=== PATIENT | female | born 2000 | race Caucasian/White ===

== ENCOUNTER 2025-06-08 10:56 | Emergency (ER) | payer BC, SELFPAY ==
--- OUTSIDE RECORDS SUMMARY | 2024-04-19 04:00 | XMS_ITS ---
Author Organization [facility] Address [address] [place], [place] [id number] Care Team Providers Care Benzene Washer Name Role Phone Wilfredo De Oliveira Primary Care Provider Rob Hanson Unavailable [phone] REASON FOR VISIT thyroid Medications Medication SIG (Take, Route, Frequency, Duration) Notes Start Date End Date Status Syringe Luer Lock 25G X 5/8 3 ML once a week; D uration: 30 days ActiveNeedle (Disp) 23G X 3/4 one a week; Duration: 30 daysActiveTirosint-MARTA 150 MCG/ML1 mL in the morning before breakfast Orally Once a dayActiveLexapro 20 MG1 tablet Orally Once a dayActiveMetoclopramide HCl 10 MG1 tablet before meals Orally three times a dayActiveTirosint-MARTA 150 MCG/ML1 mL in the morning before breakfast Orally Once a day; Duration: 30 days03/29/2024ctiveLevothyroxine Sodium 100 MCG/5ML75 mcg IM weekly; Duration: 30 daysActive Encounters Encounter Location Date Provider Diagnosis [facility] [address] [place], [place] [id number] 04/19/2024 Rob Guy Graves Disease E05.00 and Hypothyroid E03.9 Assessments Encounter Date Diagnosis (ICD Code) Assessment Notes Treatment Notes Treatment Clinical Notes Section Notes 04/19/2024 Graves Disease (ICD-10 - E05.00) 04/19/2024Hypothyroid (ICD-10 - E03.9) Plan Of Treatment Medication Medication Name Sig Start Date Stop Date Notes Syringe Luer Lock 25G X 5/8 3 ML once a week; D uration: 30 days Needle (Disp) 23G X 3/4 one a week; Duration: 30 daysLevothyroxine Sodium 100 MCG/5ML75 mcg IM weekly; Duration: 30 days Progress Notes * Stephanie DAVISeDOB:2000 ( 24 yo F)Acc No.[id number]:04/19/2024 Progress Note Patient: Yaz VELAZQUEZ :?Malena Rob, MDDOB:2000???Age:23 Y ???Sex:FemaleDate:04/19/2024hone:[phone]:[address], [place]Vho:Wilfredo De Oliveira Subjective: * Chief Complaints: * 1 . Thyroid. * Medical History: * Medications: T aking Tirosint-MARTA 150 MCG/ML Solution 1 mL in the morning before breakfast Orally Once a day , Taking Metoclopramide HCl 10 MG Tablet 1 tablet before meals Orally three times a day , Taking Lexapro 20 MG Tablet 1 tablet Orally Once a day , Taking Syringe Luer Lock 25G X 5/8 3 ML Miscellaneous once a week , Taking Needle (Disp) 23G X 3/4 Miscellaneous one a week , Taking Tirosint-MARTA 150 MCG/ML Solution 1 mL in the morning before breakfast Orally Once a day , Taking Levothyroxine Sodium 100 MCG/5ML Solution 75 mcg IM once a week Objective: * Vitals: * P ast Orders: L ab:THYROID STIMULATING HORMONE (Order Date - 04/04/2024) (Collection Date & Time - 04/04/2024 09:32 AM) Value Reference Range TSH 19.26 H 0.45-5.33 - mcIU/mL ???Lab:THYROXINE FREE (Order Date - 04/04/2024) (Collection Date & Time - 04/04/2024 09:32 AM)?ValueReference Range?Free T40.800.61-1.24 - ng/dL Assessment: * Assessment: 1.?Graves Disease - E05.00???2.?Hypothyroid - E03.9 (Primary)?? Plan: * Treatment: Start Levothyroxine Sodium Solution, 100 MCG/5ML, 75 mcg, IM, weekly, 30 days, 20 Milliliter, Refills 1;?Start Syringe Luer Lock Miscellaneous, 25G X 5/8 3 ML, once a week, 30 days, 4, Refills 3;?Start Needle (Disp) Miscellaneous, 23G X 3/4 , one a week, 30 days, 4, Refills 3.?? * Images: * Electronic signature of Rob Guy MD on 06/08/2025 at 11:48 AM EST Sign off status: Pending * Provider: Elizabeth Rivas MD Date: 06/19/2023 Generated for Printing/Faxing/eTransmitting on:?06/08/2025 11:48 AM EST
--- OUTSIDE RECORDS SUMMARY | 2025-05-29 13:20 | XMS_ITS | Encounter Summary ---
Author Organization [facility] Address [address] 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 [facility] [place] [place] [address] [place] [address] Lisa Templeton, CTC OPERATOR [address] [facility]etric[facility] [address] Pelvic pain (Primary Dx); Dysmenorrhea Social History Tobacco UseTypesPacks/DayYears UsedDateSmoking Tobacco: NeverSmokeless Tobacco: Never Tobacco Cessation:Counseling Given: Not Answered Alcohol UseStandard Drinks/WeekCommentsNo0 (1 standard drink = 0.6 oz pure alcohol)AUDIT-CAnswerDate RecordedQ1: How often do you have a drink containing alcohol?Never02/07/2023Q2: How many drinks containing alcohol do you have on a typical day when you are drinking?Patient does not drink02/07/2023Q3: How often do you have six or more drinks on one occasion?Never02/07/2023Hunger Vital Sign AnswerDate RecordedWithin the past 12 months, you worried that your food would run out before you got the money to buymore.Never true02/17/2023Within the past 12 months, the food you bought just didn't last and you didn't have money to get more.Never true02/17/2023RAPARE - TransportationAnswerDate RecordedIn the past 12 months, has lack of transportation kept you from medical appointments or from getting medications?No02/17/2023In the past 12 months, has lack of transportation kept you from meetings, work, or from getting things needed for daily living?No02/17/2023Intimate Partner ViolenceAnswerDate RecordedWithin the last year, have you felt unsafe in your home or been afraid of someone close to you?No02/17/2023Within the last year, have you been humiliated or emotionally abused in other ways by someone closeto you?No02/17/2023Within the last year, have you been kicked, hit, slapped, or otherwise physically hurt by someone cl ose to you?No02/17/2023Within the past 12 months, have you been raped or forced to have any kind of sexual activity by someone?No02/17/2023Job TrainingAnswer Date RecordedDo you have a hard time finding work or another steady source of income?No02/17/2023o you need help finding a local career center and/or job training?No02/17/2023hild or Elder CareAnswerDate RecordedIn the last 4 weeks, did getting rn maternal child, elder care, or care for another person make it difficult to work, study, or get to medical visits? 2No02/17/2023Virtual CareAnswerDate RecordedHow would you describe your comfort level with using technology (smart phones, mobile apps, patientportals) to access your health care?Very comfortable 02/17/2023o you have internet access in your home that would allow you to participate in a realtime video visit with your provider?Yes02/17/2023o you have access to a device that would allow you to participate in virtual care with your provider, such as a laptop, computer, smart phone or tablet?Yes02/17/2023 CommentsNoSex and Gender InformationValueDate RecordedSex Assigned at BirthNot on fileLegal AlhKdkjvz77/17/2013 11:03 PM ESTGender IdentityNot on file Sexual OrientationNot on filedocumented as of this encounter Last Filed Vital Signs Vital SignReadingTime TakenCommentsBlood Luyshviz189/6505/29/2025 1:03 PM EST Ugqvr739205/29/2025 1:03 PM ESTTemperature--Respiratory Rate--Oxygen Saturation-- Inhaled Oxygen Concentration--Xbnnhk81.3 kg (106 lb 6.4 oz)05/29/2025 1:03 PM WUEAjaxbc361 cm (5' 3.78 )05/29/2025 1:03 PM ESTBody Mass Index18.39107/30/2024 1:03 PM ESTdocumented in this encounter Progress Notes * Lisa Templeton, ANGY - 05/29/2025 1:08 PM EST Reason for visit: Yaz Dumont presents today to discuss irregular menstrual bleeding and pelvic pain. She is a new patient to our practice. She is 24 years old. She c/o pelvic pain pretty much every day. Takes Tylenol or Advil because of this pain basically every day. States there is always a pressure and tingling feeling throughout her pelvis. Also c/o back pain and an aching through pretty much her whole body. Back and pelvic pain are worse during period. Also has pain with intercourse and difficulty passing bowel movements as it feels like it's blocked during her period. Has to change super tampon about every 2 hours during her heavy days. Bleeds a total of 7 days. Periods have been very irregular since stopping her Depo Provera in November. Is not sure what her menstrual cycles are like as she had no periods for years in teens and then diagnosed with Graves disease. After that she has been on control pills which caused depression,Depo Provera which caused irregular bleeding, and Nexplanon which also caused constant bleeding. Previously had a Kyleena IUD which worked really well for her and controlled her bleeding and pain.However it was removed when she was diagnosed with PID 11 months ago and sent to ED. Chlamydia and gonorrhea testing was negative at that time. Had a gynecological exam at [facility] about 12 days ago. At that time they collected STI screening and vaginosis screening plus ordered an ultrasound. She was subsequently treated for BV after positive swab. She was unable to schedule the pelvic ultrasound here at [place] so hasn't scheduled yet. She mentions that her twin sister has the same problems with pelvic pain and bleeding. Her PCP suspects endometriosis. Reproductive History: Pregnancies: G0 Denies history of frequent vaginal infections or STI's. Born and identifies as female. Primary sexual partner is male. Denies concerns re: her sexual health. Pap history:..Last Pap Date: 05/17/2023 Medical history: Problem List[1] Immunizations completed: TDAP: due HPV: not done, declined today Flu: due Family history: see chart Psychosocial and Personal Health History: Marital status: Single Occupation: [employer] Exercise habits: not on file Smoke/VAPING: No Alcohol intake: 1/wk Denies history of partner violence, sexual assault Denies history of eating disorder Denies use of illegal substances or binge drinking Current meds were reviewed: Home Medications[2] Allergies reviewed: Sulfa (sulfonamide antibiotics) Patient's medications, allergies, past medical, surgical, social and family histories were reviewedand updated as appropriate. ROS: pertinent positive and negative systems described in HPI; the remainder of the 14 systems are negative Physical exam: BP 105/65 Pulse 78 Ht 1.62 m (5' 3.78 ) Wt 48.3 kg (106 lb 6.4 oz) BMI 18.39 kg/m?? General appearance: Well developed female in no distress; mood approriate Skin: Clear and dry; no unusual lesions or discolorations Neuro: A &O x3 Pelvic exam: deferred Impression and plan: Dysmenorrhea and pelvic pain. Ordered pelvic ultrasound. Talked about options for management of suspected endometriosis. Explained that a Mirena IUD could be a helpful way to suppress the endometrial lining. Will consider. Interested in avoiding other control methods. Brochures provided. Irregular menses. Recent TSH normal. Explained that periods can be irregular after Depo Provera usefor up to 10 months. Available doctor of the day for consulting: Dr. Tong Givens MA: Aurelia Taylor 30 minutes spent in visit, over 50% in review of records and face to face counseling [1] Patient Active Problem List Diagnosis Myopia of both eyes with astigmatism Graves disease Postablative hypothyroidism [2] Outpatient Medications Marked as Taking for the 05/29/25 encounter (Office Visit) with Lisa Templeton NP Medication Sig Dispense Refill docusate sodium (COLACE) 100 mg capsule Take 1 capsule (100 mg) by mouth two times daily. 20 capsule 0 escitalopram oxalate (LEXAPRO) 20 mg tablet Take 10 mg by mouth once daily. hydrOXYzine HCL (ATARAX) 25 mg tablet Take 1 tablet (25 mg) by mouth every six hours as needed for anxiety. 30 tablet 0 levonorgestreL (KYLEENA) 17.5 mcg/24 hrs (5 yrs) 19.5 mg IUD by Intrauterine route. levothyroxine 125 mcg tablet Take 125 mcg by mouth once daily. scopolamine 1 mg over 3 days TD [address] 1 patch onto the skin every 72 hours. 10 patch 0 senna (SENOKOT) 8.6 mg tablet Take 1 tablet (8.6 mg) by mouth two times daily. 20 tablet 0 documented in this encounter Plan of Treatment NameTypePriorityAssociated DiagnosesOrder ScheduleUS Pelvis w Transvaginal ImagingRoutine Pelvic pain 1 Occurrences starting 05/29/2025 until 07/30/2026documented as of this encounter Visit Diagnoses Diagnosis Pelvic pain- Primary Dysmenorrhea documented in this encounter Care Teams Team MemberRelationshipSpecialtyStart DateEnd Date Wilfredo De Oliveira, [address] [place] [address] PCP - GeneralFamily Medicine12/22/22documented as of this encounter
[2025-06-08 11:11] VITALS: BP 112/74; PULSE 69; TEMP 36.4; O2SAT 100; BMI 18.3
--- OUTSIDE RECORDS SUMMARY | 2025-06-08 11:48 | XMS_ITS | Patient Health Record ---
Author Organization [facility] Address [address] [place], [place] [address] Care Team Providers Care Fund Manager Name Role Phone Wilfredo De Oliveira Primary Care Provider Rob Hanson Unavailable [phone] Allergies Allergen (clinical drug ingredient) Drug/Non Drug Allergy documented on EMR Reaction Allergy Type Onset Date Status sulfate (uncoded)UnknownAllergyActive Reason For Referral No Information Medications Medication SIG (Take, Route, Frequency, Duration) Notes Start Date End Date Status Tirosint-MARTA 150 MCG/ML 1 mL in the morn ing before breakfast Orally Once a day; Duration: 30 days 4ActiveSyringe Luer Lock 25G X 5/8 3 MLonce a week; Duration: 30 days ActiveLevothyroxine Sodium 100 MCG/5ML75 mcg IM weekly; Duration: 30 daysActive Needle (Disp) 23G X 3/4 one a week; Duration: 30 daysActiveTirosint-MARTA 150 MCG/ML1 mL in the morning before breakfast Orally Once a dayActiveLexapro 20 MG1 tablet Orally Once a dayActiveMetoclopramide HCl 10 MG1 tablet before meals Orally three times a dayActive Social History Tobacco Use: Social History Observation Description Date Details (start date - stop date) Never Smoker NA - NA Tobacco Use/Smoking Question Answer Notes Are you a nonsmoker Alcohol Screen Question Answer Notes Did you have a drink containing alcohol in the p ast year? No Vpapyb5AxxgwsbpnwtlkcQqaxhyyb Problems Problem Type SNOMED Code ICD Code Onset Dates Problem Status W/U Status Risk Notes Problem Graves disease (851387183) Graves Disease (E05.00) ActiveconfirmedProblemHypothyroid (38956394)Hypothyroid (E03.9)Activeconfirmed Plan Of Treatment Pending Test Test Name Order Date Alpha Subunit (Free) 05/04/2022 THYROID STIMULATING HORMONE 06/16/2022 THYROID STIMULATING HORMONE 04/26/2024 THYROXINE FREE 04/26/2024 THYROXINE FREE 05/04/2022 THYROID STIMULATING HORMONE WITH CHRISTIANO han [id number] 05/04/2022 THYROID STIMULATING HORMONE 03/27/2024 THYROXINE FREE 03/27/2024 THYROXINE FREE, DIALYSIS 06/16/2022 Future Test Test Name Order Date THYROID STIMULATING HORMONE 06/15/2022 THYROXINE FREE 06/15/2022 Insurance Providers Payer Name Payer Address Payer Phone Subscriber Number Group Number Insured Name Patient Relationship to Insured Coverage Start Date Coverage End Date [facility] [employer] [place] [address] [place] [address] [id number], KayleeSelf - patient is the [id number] 2023 Medical (General) History Medical History History ICD Code Thyroid disease Surgical History Surgery Date(Month/Year) cyst removal 2017
--- OUTSIDE RECORDS SUMMARY | 2025-06-08 11:48 | XMS_ITS | Patient Health Record ---
Author Organization [facility] Address [address] [place] [address] Care Team Providers Care Garage Worker Name Role Phone Wilfredo De Oliveira DO Primary Care Provider JOSE Carpenter [phone] Allergies No Known Allergies Reason For Referral No Information Medications Medication SIG (Take, Route, Frequency, Duration) Notes Start Date End Date Status Synthroid 200 MCG Tablet 1 tablet in the morning on an empty stomach Orally Once a day; Duration: 30 day(s) ActiveZofran 4 MG Tablet1 tablet Orally Once a day; Duration: 30 day(s)*Reorder from [employer] for eRx and Interaction Alerts*ActiveLexapro 5 MG Tablet1 tablet Orally Once a day; Duration: 30 day(s)Active Social History Social History Additional DetailsCategorySocial InfoOptionsDetailsMigrated Social History Drugs/Alcohol: (Alcohol Screen): Did you have a drink containing alcohol in the past year?: Yes, Points: 0, Interpretation: Negative Tobacco Use: (Tobacco Use/Smoking):Status:: nonsmoker Problems Problem Type SNOMED Code ICD Code Onset Dates Problem Status W/U Status Risk Notes Problem Gastritis (6534941) Other gastritis witho ut bleeding (K29.60) ActiveconfirmedProblemNausea (415001737)Nausea alone (R11.0)Activeconfirmedwith belching. Had course of PPI. Thyroid workup in progress. Plan Of Treatment Pending Test Test Name Order Date Ultrasound : Abdominal 10/26/2022 EGD (ESOPHAGOGASTRODUODENOSCOPY) 023 Insurance Providers Payer Name Payer Address Payer Phone Subscriber Number Group Number Insured Name Patient Relationship to Insured Coverage Start Date Coverage End Date [facility] [address] [address] [place] [address] [id number] CHRISTOPHER DAVIS Child - Insured has Financial Responsibility [address] [facility] [address] [place] [phone], KAYLEESelf - patient is the [id number] 2022 Medical (General) History Medical History History ICD Code Grave's disease
--- OUTSIDE RECORDS SUMMARY | 2025-06-08 11:48 | XMS_ITS | Patient Health Record ---
Author Organization [facility] Address [address] [place] [address] Care Team Providers Care Stamping Mill Tender Name Role Phone JmBryan mckenzieartur Primary Care Provider Sagar Ashby Unavailable [phone] Allergies No Known Allergies Reason For Referral No Information Medications Medication SIG (Take, Route, Frequency, Duration) Notes Start Date End Date Status Tirosint-MARTA 150 MCG/ML 1 mL in the morning befo re breakfast Orally Once a day ActiveZofranActiveBenadryl Allergy 25 MG1 tablet at bedtime as needed Orally Once a dayActive Social History Tobacco Use: Social History Observation Description Date Details (start date - stop date) Never Smoker NA - NA Tobacco Use/Smoking Question Answer Notes Are you a nonsmoker Problems Problem Type SNOMED Code ICD Code Onset Dates Problem Status W/U Status Risk Notes Problem Food allergy (837629100) Food allergy (Z9 1.018) ActiveconfirmedProblemNausea (628728984)Nausea (R11.0)ActiveconfirmedProblem Flushing (62312701)Flushing (R23.2)Activeconfirmed Plan Of Treatment No Information Insurance Providers Payer Name Payer Address Payer Phone Subscriber Number Group Number Insured Name Patient Relationship to Insured Coverage Start Date Coverage End Date [facility] [address] [place] [phone] [id number] Yaz Dumont Self - patient is the insured 3 Medical (General) History Medical History History ICD Code Measles: no Anemia: noBronchitis: noDiabetes: noJaundice: noKidney disease: noMigraine: no Pneumonia: neverSeizure: noheart murmur: noSurgical History Surgery Date(Month/Year) ganglion cyst wisdom teethradioactive ablation of thyroid--Grave's dz
--- OUTSIDE RECORDS SUMMARY | 2025-06-08 11:49 | XMS_ITS | Clinical Summary ---
Author Organization [facility] Address [address] [place] [address] Care Team Providers Care Application Development Project Manager Name Role Phone JmWilfredo mckenzie Primary Care Provider [phone] Allergies Active AllergyReactionsCriticalityNoted DateCommentsSulfa (Sulfonamide Antibiotics)Rash-Mwurlm4104/03/2018 Medications MedicationSigDispense QuantityRefillsLast FilledStart DateEnd DateStatus escitalopram oxalate (LEXAPRO) 20 mg tablet Take 10 mg by mouth once daily.03/18/2019Active levonorgestreL (KYLEENA) 17.5 mcg/24 hrs (5 yrs) 19.5 mg IUD by Intrauterine route.Active hydrOXYzine HCL (ATARAX) 25 mg tablet Take 1 tablet (25 mg) by mouth every six hours as needed for anxiety. 30 tablet 02/08/2023ctive scopolamine 1 mg over 3 days TD [address] 1 patch onto the skin every 72 hours. 10 patch 03/11/2023ctive senna (SENOKOT) 8.6 mg tablet Take 1 tablet (8.6 mg) by mouth two times daily. 20 tablet 04/08/2023ctive docusate sodium (COLACE) 100 mg capsule Take 1 capsule (100 mg) by mouth two times daily. 20 capsule 04/08/2023ctive levothyroxine (Tirosint-Luis) 150 mcg/mL Solution Take 150 mcg by mouth once daily. 30 mL 4Active levothyroxine 125 mcg tablet Take 125 mcg by mouth once daily.5Active Active Problems ProblemNoted DateDiagnosed DatePostablative vajufhqbhiuhwt29/29/2022Myopia of both eyes with abckchonzre25/22/2018Graves xnrsrvk7702/01/2018 Encounters DateTypeDepartmentCare JekbLopamxpbrqc72/17/2025 1:20 PM ESTOffice Visit [facility] Level [address] [place] [phone] Lisa Templeton, ANGY Pelvic pain (Primary Dx); Dysmenorrheafrom Last 3 Months Immunizations ImmunizationAdministration DatesNext DueDTaP (pediatric)02/03/2006,02/14/2003, 06/21/2002,04/19/2002,02/13/2002Dtap, 5 Pertussis Rphhuthk95/24/2006,02/14/2003, 06/21/2002,04/19/2002,02/13/2002Hepatitis A (pediatric)(12 months through 18 years)03/14/2018Hepatitis B (pediatric)( through 19 years)06/21/2002, 2001Hib (PedvaxHIB)12/17/2002,04/19/2002Hib + Hepatitis B002/13/2002 Influenza (unspecified) - (Seasonal Historic)03/26/2013,03/27/2012,04/27/2011, 04/23/2010,03/23/2007,03/23/2007,04/22/2006,05/14/2005,05/14/2005,04/16/2005, 04/16/2005Influenza Cciiv4 (Flucelvax Quad P-free, Inj) (Seasonal Historic) 03/04/2020Influenza, Quadrivalent (P-free) (6 Mo And Older) (Inject) (Seasonal Historic)05/06/2021,03/15/2019,04/11/2017,04/09/2016,05/26/2015,03/28/2014 Influenza, Whole (Seasonal Historic)04/22/2006MMR02/03/2006,12/17/2002 Meningococcal (Unspecified)01/05/2013Meningococcal conjugate (age 9 mo-55 yrs)(Menactra) (historic)08/03/2018,01/05/2013Pneumococcal conjugate (Prevnar 7) (Historic only)12/17/2002,04/19/2002,02/13/2002Polio (IPV)02/03/2006,06/21/2002, 04/19/2002,02/13/2002Tetanus+Diphtheria+Pertussis (age 7 years and older) 01/05/20134280Smjqcfngg13/11/2007,12/17/2002 Family History Medical HistoryRelationNameCommentsHypertensionFatherChristopher HydeGout Maternal Grandfatherkeith mccartyHeart diseaseMaternal Grandfatherkeith rodriguez CataractsMaternal GrandmotherFibromyalgiaMaternal Great-GrandmotherDorothy McCartyHeart diseaseMaternal Great-GrandmotherDorothy McCartyThyroid disease Maternal Great-GrandmotherDorothy McCartyInflam bowel disMotheramy hydeIBSLupus Motheramy hydeMigrainesMotheramy hydeThyroid diseaseMotheramy hydehypothyroidism CancerPaternal Grandfatherbob hydeDiabetesPaternal Grandfatherbob hydeDiabetes type IPaternal Grandfatherbob hydeHeart diseasePaternal Grandfatherbob davis StrokePaternal Grandfatherbob hydeDiabetesPaternal Grandmotherkaren hermann Diabetes type IPaternal Grandmotherkaren russellHeart diseasePaternal Grandmotherkaren russellStrokePaternal Grandmotherkaren russellAnesthesia problemsNeg HxBleeding disorderNeg HxDeep vein thrombosisNeg HxPulmonary embolismNeg HxRelationNameStatusCommentsFatherChristopher HydeAliveMaternal Grandfatherkeith mccartyMaternal GrandmotherMaternal Great-GrandmotherDorothy McCartyMotheramy hydeAlivePaternal Grandfatherbob hydePaternal Grandmotherkaren hermann Social History Tobacco UseTypesPacks/DayYears UsedDateSmoking Tobacco: NeverSmokeless [...] RecordedIn the last 4 weeks, did getting child care attendant, elder care, or care for another person make it difficult to work, study, or get to medical visits? 2No02/17/2023Virtual CareAnswerDate RecordedHow would you describe your comfort level with using technology (smart phones, mobile apps, patientportals) to access your health care?Very comfortable 02/17/2023o you have internet access in your home that would allow you to participate in a realtime video visit with your provider?Yes02/17/2023 you have access to a device that would allow you to participate in virtual care with your provider, such as a laptop, computer, smart phone or tablet?Yes02/17/2023 CommentsNoSex and Gender InformationValueDate RecordedSex Assigned at BirthNot on fileLegal SgcWdmemc51/17/2013 11:03 PM ESTGender IdentityNot on file Sexual OrientationNot on file Last Filed Vital Signs Vital SignReadingTime TakenCommentsBlood Samawhys774/6505/29/2025 1:03 PM EST Khwrs406005/29/2025 1:03 PM UBGWymwecalvpn70.8 ??C (98.2 ??F)04/12/2023 4:20 AM EDTRespiratory Dsap7037 4:20 AM EDTOxygen Hqtjoumqxc62%04/12/2023 4:20 AM EDTInhaled Oxygen Concentration--Ymymaj21.3 kg (106 lb 6.4 oz)05/29/2025 1:03 PM HJYKkiidi004 cm (5' 3.78 )05/29/2025 1:03 PM ESTBody Mass Index18.39 05/29/2025 1:03 PM EST Plan of Treatment Health MaintenanceDue DateLast DoneCommentsHepatitis C Qprujcnql17/29/2002Human Papillomavirus HPV Vaccine (1 - 3-dose series)2016DTaP,Tdap,and Td Vaccines (7 - Td or Tdap), 02/03/2006, 02/03/2006, Additional history existsCOVID-19 Vaccine (3 - 2024- season)2025 10/24/2020, 09/24/2020Influenza Vaccine (#1), 04/30/2022, 05/06/2021, Additional history existsCervical Cancer Screening: Cytology 6107/18/2022, 05/17/2023, 05/17/2023Respiratory Syncytial Virus (RSV) or ages 60 years and older (1 - 1-dose 75+ series)2076Hepatitis B Vaccine ages 19 years and fqaxxZdfykmbrh04/09/2003, 02/13/2002, 2001 Pneumococcal CombinedAged Out12/17/2002, 04/19/2002, 02/13/2002No longer eligible based on patient's age to complete this topicRespiratory Syncytial Virus (RSV) ages 0 thru 19 monthsAged OutNo longer eligible based on patient's age to complete this topic Procedures Procedure NamePriorityDate/TimeAssociated DiagnosisCommentsCYTOLOGY OUTBOUND SALES AGENT, OIJDYRCPEXzkxfza04/05/2023 3:20 PM EST Papanicolaou test, as part of routine gynecological examination from Last 3 Months or Most Recently Relevant to Health Maintenance Results * Thin Prep Pap, Screening (05/17/2023 3:20 PM EST)ComponentValueRef RangeTest MethodAnalysis TimePerformed AtPathologist SignaturePap Test, Screening? CYTOPATHOLOGY GYNECOLOGIC REPORT Order Number: ?[id number] ?Date Received: ?? 05/17/2023 6:59 PM Date Completed: ??05/18/2023 11:02 AM ? Date Collected: ??05/17/2023 3:20 PM Diagnosis: Negative for intraepithelial lesion or malignancy. Adequacy: Satisfactory for evaluation. ??Transformation zone present. Comment: The cervicovaginal Pap smear is a very important screening test that is extremely useful in the detection of cancerous and precancerous conditions of the uterine cervix. ??However, this test is not perfect and false negative results, in which cancer or a precancerous condition may be missed, represent a known and expected limitation of this test. ??enhanced environmental operator studies indicate an irreducible false negative fraction of at least 5%. ??The patient should be reminded to consult the physician immediately if there are any suspicious signs or symptoms, regardless of the Pap test result. Specimen: ThinPrep Pap Test, Screening Cervical/Endocervical History: Electronically Signed By: CPT Codes: Specimen ?? CPT Code ?Number of Charges A ?20543 ? 1 ?? Performing site: ?? [facility] ? [facility] Department of Pathology and Clinical Laboratories ?[address] ?[place] [address] CLIA Director: Stefan Gann MD CLIA Number: [id number] ?? Performing site: ?? [facility] ? [facility] ?[address] [place] [address] [address] ?[place] [address] CLIA Director: Stefan Gann MD CLIA Number: [id number] [facility] Anatomical RegionLateralityModalityOtherSpecimen (Source)Anatomical Location / LateralityCollection Method / VolumeCollection TimeReceived WyrvPxqwey37/05/2023 3:20 PM EST05/17/2023 6:59 PM EST Narrative Authorizing ProviderResult TypeResult StatusMonica Emily Malhotra MDPATH/CYTO LABS Final Result from Last 3 Months or Most Recently Relevant to Health Maintenance Insurance * Guarantor: Layla Davis AAccount TypeRelation to PatientDate of BirthPhoneBilling AddressPersonal/SarrcvLhhlym28/16/1976 [address] [place] [address] * Guarantor: Jennifer Davis NAccount TypeRelation to PatientDate of BirthPhone Billing AddressPersonal/OrtsedNtjh18/29/2002 [address] [place] [address] Care Teams Team MemberRelationshipSpecialtyStart DateEnd Date Wilfredo De Oliveira DO [address] [facility] [address] [place] [address] PCP - GeneralFawyly Medicine12/22/22
--- OUTSIDE RECORDS SUMMARY | 2025-06-08 11:49 | XMS_ITS | Clinical Summary ---
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 Name Role Phone Wilfredo De Oliveira Primary Care Provider [phone] Allergies Active AllergyReactionsCriticalityNoted DateCommentsSulfa (Sulfonamide Antibiotics)Rash11/23/20191261Majlitjsnmvvcgkd58/23/1698Acrqqanokwzz16/23/2018 Medications MedicationSigDispense QuantityRefillsLast FilledStart DateEnd DateStatus levothyroxine (SYNTHROID, LEVOTHROID) 125 mcg tablet Take 1 tablet (125 mcg total) by mouth 1 (one) time each day.4Active prucalopride 2 mg tablet Take 1 tablet by mouth 1 (one) time each day.5Active albendazole (ALBENZA) 200 mg tablet TAKE 2 TABLETS BY MOUTH ONCE DAILY DIRECTED REPEAT DOSING AFTER 2 WEEKS 5Active ALPRAZolam (XANAX) 0.25 mg tablet Take 1 tablet (0.25 mg total) by mouth 2 (two) times a day if needed.11/02/2024 Active ALPRAZolam (XANAX) 0.5 mg tablet 08/27/2024tive cyproheptadine (PERIACTIN) 4 mg tablet TAKE 1 TABLET BY MOUTH ONCE DAILY AT NIGHT AT [id number]/27/2024tive dexAMETHasone 0.5 mg/5 mL elixir 08/27/2024tive fluticasone propionate (FLONASE) 50 mcg/actuation nasal spray USE 2 SPRAY(S) IN EACH NOSTRIL ONCE DAILY [id number]/09/2024ctive granisetron (KYTRIL) 1 mg tablet Take 1 tablet (1 mg total) by mouth 1 (one) time each day if needed.06/29/2024 Active busPIRone (BUSPAR) 5 mg tablet Take 1 tablet (5 mg total) by mouth 2 (two) times a day. as exclzxsz31/27/2024 05/17/2025Discontinued escitalopram (LEXAPRO) 20 mg tablet Take 1 tablet (20 mg total) by mouth 1 (one) time each day. as directed Discontinued polyethylene glycol (PEG) 17 gram/dose oral powder 17 g 1 (one) time each day.05/17/2025Discontinued levothyroxine 20 mcg/mL solution 75 mcg IM once a week 30 days 20 mL Discontinued levothyroxine 20 mcg/mL solution Inject 75 mcg into the shoulder, thigh, or buttocks 1 (one) time per week. 20 mL Discontinued metoclopramide (REGLAN) 5 mg tablet TAKE 1 TABLET BY MOUTH THREE TIMES DAILY 30 MINUTES BEFORE MEALS AND AT BEDTIME Discontinued ondansetron HCl/PF (ZOFRAN, PF, INJ) Zryhbe9805/17/2025Discontinued ondansetron ODT (ZOFRAN-ODT) 4 mg disintegrating tablet DISSOLVE 1 TABLET IN MOUTH TWICE DAILY [id number] ondansetron (ZOFRAN) 4 mg tablet TAKE 1 TABLET BY MOUTH 1 TO 2 TIMES DAILY [id number] Discontinued OXcarbazepine (TRILEPTAL) 150 mg tablet Discontinued predniSONE (DELTASONE) 20 mg tablet Take 1 tablet (20 mg total) by mouth 1 (one) time each day in the morning. Discontinued QUEtiapine (SEROquel) 25 mg tablet Take 1 tablet (25 mg total) by mouth. at [id number] metoclopramide (REGLAN) 10 mg tablet Take 1 tablet (10 mg total) by mouth 3 (three) times a day if needed.07/10/2024 05/17/2025Discontinued ondansetron (ZOFRAN) 4 mg tablet 1 tablet (4 mg total) 1 (one) time each day at the same time.05/17/2025 Discontinued albuterol HFA (PROAIR HFA ; PROVENTIL HFA ; VENTOLIN HFA) 90 mcg/actuation inhaler Inhale 2 puffs by mouth every 4 (four) hours.Discontinued azithromycin (ZITHROMAX) 250 mg tablet TAKE 2 TABLETS BY MOUTH ON DAY 1, AND THEN TAKE 1 TABLET BY MOUTH ONCE A DAY ON DAY 2 THROUGH DAY Discontinued azithromycin (ZITHROMAX) 250 mg tablet TAKE 2 TABLETS BY MOUTH ON DAY 1, AND THEN TAKE 1 TABLET BY MOUTH ONCE A DAY ON DAY 2 THROUGH DAY Discontinued benzonatate (TESSALON) 100 mg capsule Take 1 capsule (100 mg total) by mouth 3 (three) times a day.05/21/2024 05/17/2025Discontinued benzonatate (TESSALON) 200 mg capsule Take 1 capsule (200 mg total) by mouth 3 (three) times a day.06/01/2024 05/17/2025Discontinued ciprofloxacin (CIPRO) 250 mg tablet Take 1 tablet (250 mg total) by mouth every 12 (twelve) hours.08/14/2024 05/17/2025Discontinued diphenhydrAMINE (Benadryl Allergy) 25 mg tablet 1 tablet (25 mg total) 1 (one) time each day at the same time.05/17/2025 Discontinued hydrOXYzine HCL (ATARAX) 25 mg tablet Take 1 tablet (25 mg total) by mouth 2 (two) times a day if needed. for anxiety Discontinued hydrOXYzine HCL (ATARAX) 10 mg tablet TAKE 1 TABLET BY MOUTH TWICE DAILY NEEDED FOR SLEEP AND FOR FQOTXTT2407/12/2024 05/17/2025Discontinued Arianna 0.35 mg tablet Take 1 tablet (0.35 mg total) by mouth 1 (one) time each day. as directed Discontinued omeprazole (PriLOSEC) [address] capsule Take 1 capsule (40 mg total) by mouth 1 (one) time each day. Discontinued ciprofloxacin (CIPRO) 500 mg tablet Take 1 tablet (500 mg total) by mouth 2 (two) times a day for 7 days. 14 tablet Expired metroNIDAZOLE (FLAGYL) 500 mg tablet Take 1 tablet (500 mg total) by mouth 2 (two) times a day for 7 days. Do not use mouth wash or consume alcohol until 48 hours after last dose 14 tablet Expired Active Problems ProblemNoted DateDiagnosed XnxrByanhfpt04/13/3917Golnoy53/13/2023Malaise and znrddtq2610/08/2022ostablative zmzuxpeddobvxg34/29/2022Generalized muscle ache 06/10/2021 Assessment & Plan (06/10/2021 7:05 AM EST): Concern for other autoimmune process causing symptoms of significant fatigue and generalized muscleaches due to her history of Graves' disease and recent unremarkable thyroid work-up by endocrinology. -Autoimmune panel ordered with inflammatory markers -Eat a diet low in saturated fat and cholesterol, and with abundant whole grains, fruits and vegetables. Increase water intake and stay well hydrated. I recommend daily exercise as tolerated and goodquality sleep. Moderate episode of recurrent major depressive ynprnmyg03/26/2021 Assessment & Plan (02/03/2021 3:28 PM EDT): PHQ-2: 1 & PHQ-9: 3. No SI/HI. Stable/controlled. Therapy plan adjusted. Will continue to monitor. Refill provided. -Lexapro increased from 5 mg daily to 10 mg daily -Continue with therapist/counseling -Recommend/discussed the benefits of therapy/counselor. Discussed the importance of healthy diet, physical activity and getting adequate sleep. Avoid alcohol, illicit usage of prescription or non-prescription substances. Recommended finding activities you enjoy and make effort to do more! Learn more about cognitive behavioral therapy (CBT). A good resource is a CBT book Feeling Good by Dr. Alfonso. If any thoughts of harming self/others please seek help immediately or get transportation to an ER nearest you ([employer] Suicide Prevention Lifeline # ). Assessment & Plan (01/13/2021 11:06 AM EDT): Depression 1. Take medications as discussed 2. Increase regular exercise 3. If you have questions about the side effects we discussed please call us 4. Avoid marijuana and illicit substances 5. If you have thoughts of suicide call us or go to ER 6. Go to ER or call 911 if severe reaction or symptoms occur 7. Consider counseling Assessment & Plan (01/05/2021 4:06 PM EDT): Start wellbutrin and take once daily in the morning Follow up with Dr Rocha in one month Depression 1. Take medications as discussed 2. Increase regular exercise 3. If you have questions about the side effects we discussed please call us 4. Avoid marijuana and illicit substances 5. If you have thoughts of suicide call us or go to ER 6. Go to ER or call 911 if severe reaction or symptoms occur 7. Consider counseling Hemorrhagic cyst of left ovary02/09/2020 Assessment & Plan (02/19/2020 3:42 PM EDT): Recent ED visit-US essentially normal.Advised pt to go back to OBGYN if issue returns or gets worse. Assessment & Plan (02/09/2020 2:14 PM EDT): Noted on most recent US done by OBGYN, pt notes pain in region that is worsening. -Pelvic US ordered to re-eval issue. -Warning signs to seek ED noted Fkalkaig05/15/2020 Assessment & Plan (05/29/2020 4:12 PM EST): Things you can do to address insomnia (difficulty sleeping): 1. Keep a consistent and regular schedule for going to bed and getting up in the morning, includingweekends, to stabilize your biological clock. 2. Avoid looking at screens for 1-2 hours prior to bed. If you need you, you can get a filter to block the blue light that is emitted from them. This will allow for your natural melatonin to rise appropriately which is the hormone we need to induce sleep. 3. Eat reglar meals during the day. Do not eat a big meal within 3 hours of your bedtime. Avoid skipping meals. You can have a light snack before bed to prevent nighttime hunger. 4. Make the last hour before bedtime a wind down time. Engage in relaxing activities, dim the lights, have a light snack. 5. Do not consume more than 8 to 10 ounces of liquids in the evening. A full or semi-full bladder can contribute to awakenings. Restrict liquids in the evening after dinner and empty your bladder right before bed. 6. Do not consume caffeinated products (coffee, tea, soda, chocolate) in the evening or within 8 hours of bedtime. 7. Do not use alcohol to help you sleep or consume alcohol two hours prior bedtime. Alcohol tends to disrupt your sleep with frequent awakenings. 8. Avoid napping during the day. 9. Exercise regularly but not late in the day. Getting out for an early afternoon walk (if able) will help with better rest at the end of the day. 10. Drinking Camomile tea and also lavender essential oils help with sleep. 11. You can try melatonin (over-the--counter supplement) 3 mg at night. Assessment & Plan (01/26/2020 12:47 PM EDT): Things you can do to address insomnia (difficulty sleeping): 1. Keep a consistent and regular schedule for going to bed and getting up in the morning, includingweekends, to stabilize your biological clock. 2. Avoid looking at screens for 1-2 hours prior to bed. If you need you, you can get a filter to block the blue light that is emitted from them. This will allow for your natural melatonin to rise appropriately which is the hormone we need to induce sleep. 3. Eat reglar meals during the day. Do not eat a big meal within 3 hours of your bedtime. Avoid skipping meals. You can have a light snack before bed to prevent nighttime hunger. 4. Make the last hour before bedtime a wind down time. Engage in relaxing activities, dim the lights, have a light snack. 5. Do not consume more than 8 to 10 ounces of liquids in the evening. A full or semi-full bladder can contribute to awakenings. Restrict liquids in the evening after dinner and empty your bladder right before bed. 6. Do not consume caffeinated products (coffee, tea, soda, chocolate) in the evening or within 8 hours of bedtime. 7. Do not use alcohol to help you sleep or consume alcohol two hours prior bedtime. Alcohol tends to disrupt your sleep with frequent awakenings. 8. Avoid napping during the day. 9. Exercise regularly but not late in the day. Getting out for an early afternoon walk (if able) will help with better rest at the end of the day. 10. Drinking Camomile tea and also lavender essential oils help with sleep. 11. You can try melatonin (over-the--counter supplement) 3 mg at night. Seasonal allergic gbkujjkk91/12/2020Attention deficit hyperactivity disorder (ADHD)11/23/2019 Assessment & Plan (04/17/2020 3:02 PM EST): Disease diagnosis discussed; given worsening symptoms will go up on Strattera to 40 mg qd. Pt also on Effexor 150 XR medication daily. Please call for medication renewal when due, will need one appointment every 6 months for continuedrefills Assessment & Plan (02/09/2020 2:16 PM EDT): Disease diagnosis discussed; given worsening symptoms will go up on Strattera to 40 mg qd. Pt also on Effexor medication daily. Please call for medication renewal when due, will need one appointment every 6 months for continuedrefills Generalized anxiety htrzciqo91/12/2020 Assessment & Plan (05/06/2021 12:05 PM EST): RENALDO-7: 4. Doing well on new dose of Lexapro. No changes in therapy plan. Will continue to monitor. -Continue with Lexapro 15 mg daily -Continue with therapist/counseling -Try to reduce/avoid anxiety triggers including stressful situations and thoughts. Limit/avoid caffeine, alcohol, energy drinks , chocolate. Avoid skipping meals as low blood sugar can also increaseanxiety. Continue stress reduction techniques: 1) Regular exercise and breathing exercises, 2) Yoga, meditation, or even going for walks and focusing on relaxation and breathing. Do not drive, operate machinery or expose self to dangerous situations if drowsy from medications. Assessment & Plan (04/13/2021 8:25 AM EDT): RENALDO-7: 8 (worsened from RENALDO-7: 6 last visit). Overall anxiety has been worsening. No current med side-effects with Lexapro 10 mg daily. Expressed interest in trial of increasing the dose of Lexapro. -Lexapro changed from 10 mg to 15 mg daily -Hydroxyzine 10 mg every 8 hours as needed prescribed for acute anxiety -Continue with therapist/counseling -Counseling/therapy encouraged. Try to reduce/avoid anxiety triggers including stressful situationsand thoughts. Limit/avoid caffeine, alcohol, energy drinks , chocolate. Avoid skipping meals as low blood sugar can also increase anxiety. Continue stress reduction techniques: 1) Regular exercise and breathing exercises, 2) Yoga, meditation, or even going for walks and focusing on relaxation and breathing. Do not drive, operate machinery or expose self to dangerous situations if drowsy from medications. Assessment & Plan (02/03/2021 3:27 PM EDT): RENALDO-7: 6. Doing well today. No concerns. Expressed interest in trial of increasing the dose of Lexapro. -Lexapro increased from 5 mg to 10 mg daily -Continue with therapist/counseling -Counseling/therapy encouraged. Try to reduce/avoid anxiety triggers including stressful situationsand thoughts. Limit/avoid caffeine, alcohol, energy drinks , chocolate. Avoid skipping meals as low blood sugar can also increase anxiety. Continue stress reduction techniques: 1) Regular exercise and breathing exercises, 2) Yoga, meditation, or even going for walks and focusing on relaxation and breathing. Do not drive, operate machinery or expose self to dangerous situations if drowsy from medications. Assessment & Plan (01/13/2021 11:06 AM EDT): Anxiety 1. Avoid stressful situations, skipping meals alcohol, caffeine, marijuana and other substances 2. Daily exercise and/or yoga may be helpful 3. Consider counseling if you are not already seeing a counselor 4. Take medications as directed, if they are ordered, side effects discussed 5. Follow up with Dr Rocha at the end of the month as scheduled 6. If you have thoughts of suicide please call us or go to ER immediately Assessment & Plan (06/22/2020 1:25 PM EST): Diagnosis and risks/benefits of treatment options were discussed today. Counseling options were also discussed. We reviewed medication side effects, precautions, and appropriate usage. Additional recommendations: 1. Limit or avoid caffeine, alcohol, and energy drinks or boosters 2. Stress reduction techniques can be reviewed on web sites given below 3. If reaction to medication occurs, discontinue use and call the office 4. Go directly to the emergency room or call 911 if severe symptoms, reaction, or suicidal thoughts 5. Do not drive, operate machinery, or expose yourself to heights or dangerous situations if you are drowsy from medications Medications: now off effexor completely, will increase Celexa form 10 to 20 mg at night-time. Continue Strattera qam. Please contact the office if you have any questions or concerns about plan goals that have been mutually established. Follow up as scheduled. Assessment & Plan (05/29/2020 4:13 PM EST): Diagnosis and risks/benefits of treatment options were discussed today. Counseling options were also discussed. We reviewed medication side effects, precautions, and appropriate usage. Additional recommendations: 1. Limit or avoid caffeine, alcohol, and energy drinks or boosters 2. Stress reduction techniques can be reviewed on web sites given below 3. If reaction to medication occurs, discontinue use and call the office 4. Go directly to the emergency room or call 911 if severe symptoms, reaction, or suicidal thoughts 5. Do not drive, operate machinery, or expose yourself to heights or dangerous situations if you are drowsy from medications Medications: decrease from Effexor 112.5 mg down to 75 mg for 1 week, then 37.5 mg x 1 week. Then start new medication Celexa 10 mg at night-time. Continue Strattera qam. Please contact the office if you have any questions or concerns about plan goals that have been mutually established. Follow up as scheduled. Assessment & Plan (05/06/2020 4:54 PM EST): Diagnosis and risks/benefits of treatment options were discussed today. Counseling options were also discussed. We reviewed medication side effects, precautions, and appropriate usage. Additional recommendations: 1. Limit or avoid caffeine, alcohol, and energy drinks or boosters 2. Stress reduction techniques can be reviewed on web sites given below 3. If reaction to medication occurs, discontinue use and call the office 4. Go directly to the emergency room or call 911 if severe symptoms, reaction, or suicidal thoughts 5. Do not drive, operate machinery, or expose yourself to heights or dangerous situations if you are drowsy from medications Medications: decrease from Effexor 150 mg to 112.5 mg since pt has noted SEs at higher dose; make sure to not take Effexor and Strattera together as discussed. Please contact the office if you have any questions or concerns about plan goals that have been mutually established. Follow up as scheduled. Assessment & Plan (04/17/2020 3:01 PM EST): Diagnosis and risks/benefits of treatment options were discussed today. Counseling options were also discussed. We reviewed medication side effects, precautions, and appropriate usage. Additional recommendations: 1. Limit or avoid caffeine, alcohol, and energy drinks or boosters 2. Stress reduction techniques can be reviewed on web sites given below 3. If reaction to medication occurs, discontinue use and call the office 4. Go directly to the emergency room or call 911 if severe symptoms, reaction, or suicidal thoughts 5. Do not drive, operate machinery, or expose yourself to heights or dangerous situations if you are drowsy from medications Medications: titrated off lexapro 20 mg recently; Will increase to Effexor 150 mg qam since pt has noted improvement on med at this dose, and can continue other meds as directed. Please contact the office if you have any questions or concerns about plan goals that have been mutually established. Follow up as scheduled. Assessment & Plan (11/27/2019 7:18 PM EDT): Diagnosis and risks/benefits of treatment options were discussed today. Counseling options were also discussed. We reviewed medication side effects, precautions, and appropriate usage. Additional recommendations: 1. Limit or avoid caffeine, alcohol, and energy drinks or boosters 2. Stress reduction techniques can be reviewed on web sites given below 3. If reaction to medication occurs, discontinue use and call the office 4. Go directly to the emergency room or call 911 if severe symptoms, reaction, or suicidal thoughts 5. Do not drive, operate machinery, or expose yourself to heights or dangerous situations if you are drowsy from medications Medications to be continued: Lexapro 20 mg daily. Please contact the office if you have any questions or concerns about plan goals that have been mutually established. Follow up as scheduled. Graves dhuveny8308/23/2019 Assessment & Plan (01/13/2021 11:06 AM EDT): 1. We refilled your medication today 2. 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 The last few months had elevated T4 and T3 levels and low TSH. Thyroid levels have more recently normalized and recent thyroid nuclear medicine test had showed successful post ablative changes with minimal thyroid activity and no exogenous source of thyroid hormone. She is back on levothyroxine 88 mcg daily. -Follow-up with endocrinology for management -Continue levothyroxine 88 mcg daily Assessment & Plan (05/06/2021 12:43 PM EST): History of Graves' disease s/p LEGER treatment. Now managed by endocrinology for iatrogenic/postablative hypothyroidism. More recently has had elevated T4 and T3 levels and low TSH. Is undergoing evaluation by endocrinology. Is currently off all thyroid replacement medication. -Follow-up with endocrinology for management/testing Assessment & Plan (04/13/2021 8:22 AM EDT): History of Graves' disease s/p LEGER treatment. Now managed by endocrinology for iatrogenic hypothyroidism. Would like to get blood work done today. -Blood work ordered to reassess TSH, free T4 and T3 levels -Continue thyroid medication as prescribed -Follow-up with endocrinology for management -Take the thyroid medication as directed, usually by itself in the morning at least 30 mins before eating. Avoid taking medicine with antacids, iron or calcium supplement as this can interfere with absorption of your medicine. Assessment & Plan (06/22/2020 1:25 PM EST): TSH still low on last lab and elevated T4 level; seeing endocrine and dose is getting adjusted per our discussion. Assessment & Plan (05/29/2020 4:12 PM EST): TSH still low on last lab and elevated T4 level; seeing endocrine and dose is getting adjusted per our discussion. Assessment & Plan (04/17/2020 3:02 PM EST): TSH still low on last lab and elevated T4 level; seeing endocrine and dose is getting adjusted per our discussion. Assessment & Plan (02/19/2020 3:43 PM EDT): TSH<0.01 on last lab and elevated T4 level, will go down on dose to 150 from 175 daily and recheck in 6-8 weeks. Assessment & Plan (02/09/2020 2:14 PM EDT): TSH<0.01 on last lab and elevated T4 level, will go down on dose to 150 from 175 daily and recheck in 6-8 weeks. Assessment & Plan (12/01/2019 9:39 PM EDT): Diagnosis and treatment discussed. Labs reviewed and shared with patient. Discussed medication including proper timing, importance of compliance, and low risk of side effects. *Seeing endocrine who is following issue closely; on meds as directed Coietzt24/06/2020 Assessment & Plan (02/19/2020 3:43 PM EDT): Diagnosis and risks/benefits of treatment options were discussed today. Counseling options were also discussed. We reviewed medication side effects, precautions, and appropriate usage. Additional recommendations: 1. Limit or avoid caffeine, alcohol, and energy drinks or boosters 2. Stress reduction techniques can be reviewed on web sites given below 3. If reaction to medication occurs, discontinue use and call the office 4. Go directly to the emergency room or call 911 if severe symptoms, reaction, or suicidal thoughts 5. Do not drive, operate machinery, or expose yourself to heights or dangerous situations if you are drowsy from medications Medications: titrated off lexapro 20 mg recently and started Effexor 37.5 mg with minimal improvement. Will increase to Effexor 50 mg qam, and can take evening 25 mg dose starting next Tuesday if tolerated. Please contact the office if you have any questions or concerns about plan goals that have been mutually established. Follow up as scheduled. Assessment & Plan (01/26/2020 12:46 PM EDT): Diagnosis and risks/benefits of treatment options were discussed today. Counseling options were also discussed. We reviewed medication side effects, precautions, and appropriate usage. Additional recommendations: 1. Limit or avoid caffeine, alcohol, and energy drinks or boosters 2. Stress reduction techniques can be reviewed on web sites given below 3. If reaction to medication occurs, discontinue use and call the office 4. Go directly to the emergency room or call 911 if severe symptoms, reaction, or suicidal thoughts 5. Do not drive, operate machinery, or expose yourself to heights or dangerous situations if you are drowsy from medications Medications: titrate off lexapro 20 mg as discussed, start Effexor 37.5 mg. Please contact the office if you have any questions or concerns about plan goals that have been mutually established. Follow up as scheduled. Encounters DateTypeDepartmentCare ReeqBnoxyfsfanj60/08/2025Results Follow-Up [facility]stetrics & Gynecology - [place] [address] [place] [address] Yosvany Kilpatrick, REAL 05/20/2025Telephone [facility]ne[facility] - [address] [place] [address] Grayson Solis RN 05/17/2025 10:00 AM ESTOffice Visit [facility] [address] [place] [address] Ca Hidalgo NP Irregular periods (Primary Dx); Dysuria; Routine screening for STI (sexually transmitted infection); Vaginal discharge; test negative; Acute midline low back pain without sciatica; Postcoital bleeding; Pelvic pain04/24/2025 3:05 PM ESTLab [facility] [address] [place] [address] Pain in joint, multiple sites (Primary Dx)03/11/2025 4:42 PM EDT - 03/11/2025 11:59 PM EDTHospital Encounter [facility] [address] [place] [address] Nausea; Other constipation; Change in bowel habit Discharge Disposition: Home or Self Carefrom Last 3 Months Immunizations ImmunizationAdministration DatesNext DueDTaP (Infanrix) 6wks to less than 7yo 02/03/2006,02/14/2003,06/21/2002,04/19/2002,02/13/2002DTaP 5 pertussis antigens, Diptheria Tetanus acellular pertussis (Daptacel) 6wks to less than 7yo02/03/2006 ,02/14/2003,06/21/2002,04/19/2002,02/13/2002Hep B / HiB02/13/2002Hepatitis A Pediatric (Havrix; Vaqta) 12mo to less than 19yo03/14/2018Hepatitis B Pediatric (Engerix B; Recombivax HB) to less than 20 yo06/21/2002,2001HiB PRP- OMP conjugate (Pedvaxhib) 6wks and older07/12/2002,04/19/2002IPV Inactivated polio (Ipol) 6wks and older02/03/2006,06/21/2002,04/19/2002,02/13/2002Influenza Quadravalent, MDCK, 0.5ml, preservative free (Flucelvax) 6mo and older03/04/2020 Influenza Quadrivalent, 0.5ml, preservative free (Fluarix; FluLaval; Fluzone) ages 6mo and older (Afluria) 3yo and older04/30/2022,05/06/2021,03/15/2019, 04/11/2017,04/09/2016,05/26/2015,03/28/2014Influenza Split03/23/2007,05/14/2005, 04/16/2005Influenza Whole04/22/2006Influenza trivalent, 0.5mL, preservative free (Fluarix; FluLaval; Fluzone) ages 6mo and older (Afluria) 3 years and older 03/26/2013,03/27/2012,04/27/2011,04/23/2010,03/23/2007,05/14/2005,04/16/2005 Influenza, Zmmkeueidqe72/14/2013,03/27/2012,04/27/2011,04/23/2010,03/23/2007, 04/22/2006,05/14/2005,04/16/2005MMR, measles mumps and rubella Live (Priorix; M-M-R II) 12mo and older02/03/2006,12/17/2002Meningococcal JSJ5U4808/03/2018, 01/05/2013Meningococcal, Psrfmqviaof53/26/2013Moderna SARS-CoV-2 COVID-19, mRNA, LNP-S, preservative free10/24/2020,1Pneumococcal Conjugate Vaccine, 7 Yaezxe3012/17/2002,04/19/2002,02/13/2002Tdap Tetanus diptheria acellular pertussis (Boostrix; Adacel) 7yo and older01/05/2013Varicella live (Varivax) 12mo and older03/23/2007,12/17/2002 Surgical History SurgeryDateSite/LateralityCommentsCYST ATNANSK4807/15/2017Left Left wrist ganglion cyst removal WISDOM TOOTH EXTRACTION HXTZGLHNDWEHUYR08/02/2023 L/S Medical History Medical HistoryDateCommentsDisease of thyroid lbfseMoaoptm6026Xjhusxcqdh0527 Graves diseaseMalaise and fatigueHypothyroidism Family History Medical QqrizxsRlnsfdtsPhxhMpsdpnqhHmldzhxqnuokLwmaem0420DomuXuyeeryy GrandfatherKeithHeart diseaseMaternal GrandfatherKeithCataractsMaternal GrandmotherGraves' diseaseMaternal GrandmotherHyperthyroidismMaternal GrandmotherFibromyalgiaMaternal Great-GrandmotherDorothyHeart diseaseMaternal Great-GrandmotherDorothyThyroid diseaseMaternal Great-GrandmotherDorothy Yudith's thyroiditisMotherAmyHypothyroidismMotherAmyIrritable bowel syndrome MotherAmyLupusMotherAmyMigrainesMotherAmyfamily hx asthma, MigrainesOtherCancer Paternal GrandfatherBobDiabetes type IPaternal GrandfatherBobHeart disease Paternal GrandfatherBobStrokePaternal GrandfatherBobBrain AneurysmPaternal GrandmotherKarenDiabetes type IPaternal GrandmotherKarenHeart diseasePaternal GrandmotherKarenStrokePaternal GrandmotherKarenBreast cancerPaternal Grandparent QdpswlpgPobkHcnnoyVmhvdswpLvecxh9329Jvuaentz GrandfatherKeithMaternal GrandmotherMaternal Great-GrandmotherDorothyMotherAmyOtherPaternal Grandfather BobPaternal GrandmotherKarenPaternal Grandparent Social History Tobacco UseTypesPacks/DayYears UsedDateSmoking Tobacco: NeverSmokeless Tobacco: Never Tobacco Cessation:Counseling Given: Not Answered Alcohol UseStandard Drinks/WeekCommentsYes0 (1 standard drink = 0.6 oz pure alcohol)sociallyHousing InstabilityAnswerDate RecordedAre you worried that in the next 2 months you may not have stable housing?No01/19/2023Food Access & NutritionAnswerDate RecordedDo you have access to a variety of food including fruits and vegetables?Yes01/19/2023ccess to HealthcareAnswerDate RecordedWithin the last 3 months, how many times did you visit the emergency department for your medical care?Health LiteracyAnswerDate RecordedHow often do you need to have someone help you when you read instructions, pamphlets, or other written material from your doctor or pharmacy?Never01/19/2023aregiver: How often do you need to have someone help you when you read instructions, pamphlets, orother written material from your doctor or pharmacy?Not on file 01/19/2023Financial RiskAnswerDate RecordedHow hard is it for you to pay for the very basics like food, housing, medical care, and air conditioning / heating?Not very hard01/19/2023TransportationAnswerDate RecordedHas the lack of transportation kept you from meetings, work, or from getting things needed for daily living?No01/19/2023Has the lack of transportation kept you from medical appointments or from getting medications?No01/19/2023Social IsolationAnswerDate RecordedHow often do you feel lonely or isolated from those around you?Rarely 01/19/2023Food RiskAnswerDate RecordedWithin the past 12 months we worried whether our food would run out before we got money to buy more.Never true 01/19/2023Within the past 12 months the food we bought just didn't last and we didn't have money to get more.Never true01/19/2023ependent CareAnswerDate RecordedDo you need help finding or paying for care for your loved ones. For example, children's court magistrate or elderlycare for an older adult?No01/19/2023Education AnswerDate RecordedDo you think completing more education or training, like finishing a GED, going to college, or learning a trade, would be helpful for you?Yes01/19/2023Interpersonal SafetyAnswerDate RecordedPhysical Abuse Unrecognized value03/14/2023Verbal AbuseUnrecognized value03/14/2023 CommentsNoSex and Gender InformationValueDate RecordedSex Assigned at Gbajpt5804/25/2024 2:22 PM ESTLegal BntVkiwkq47/02/2019 1:02 AM EDTGender Identity Ghechq3304/25/2024 2:22 PM ESTSexual OrientationChoose not to utwniswt46/13/2024 2:22 PM EST Obstetrics History GravidaParaTermPretermABIABSABEctopicMultipleLivingLive [id number] Last Filed Vital Signs Vital SignReadingTime TakenCommentsBlood Hrpnbqxm931/6305/17/2025 9:49 AM EST Uuufc369205/17/2025 9:49 AM AONRlfjwouaqmh06 ??C (98.6 ??F)06/25/2024 9:16 PM EST Respiratory Ntke960406/25/2024 9:16 PM ESTOxygen Hnurfawpsh868%06/25/2024 9:16 PM ESTInhaled Oxygen Concentration--Lnrtbv98.9 kg (110 lb)05/17/2025 9:49 AM EST Mwogcb587.5 cm (5' 2 )05/17/2025 9:49 AM ESTBody Mass Index20.12107/18/2024 9:49 AM EST Plan of Treatment DateTypeDepartmentCare Team (Latest Contact Info)Tlxzawqavsm23/02/2026 4:30 PM ESTAppointment [facility] [address] [place] [phone] Health MaintenanceDue DateLast DoneCommentsNaloxone Order2001Non-Opioid Controlled Substance Esgyzehkx03/29/2002Pain Gxdpgohsof41/29/2002HPV Vaccines (1 - 3-dose series)2016Meningococcal B Vaccine (1 of 2 - Standard)2017 Hepatitis A Vaccines (2 of 2 - 2-dose series)HIV Screening 06/27/2019Hepatitis C Eatedceoi66/15/2020Opioid Substance Zuxgqbqmj44/01/2021 1DTaP,Tdap,and Td Vaccines (7 - Td or Tdap)/, 02/03/2006, 02/03/2006, Additional history existsSocial Influencers of Health Nnqkegqrg78/3Depression Tuumkwsyy21/01/2025Drug Suesnq3601/08/2025 4COVID-19 Vaccine (3 - 2024-26 season)505/, 09/24/2020 Influenza Vaccine (#1)/, 04/30/2022, 05/06/2021, Additional history existsCervical Cancer Screening: Pap Smear/10/2022, 05/17/2023onorrhea/Chlamydia Gqjtooslr05/10/2024, 06/25/2024, 05/17/2023RSV Immunization Adult Patients (1 - 1-dose 75+ series)2076 Hepatitis B AvuekhhrArloxogmz18/09/2003, 02/13/2002, 2001HIB Vaccines Eissikdoa28/07/2003, 04/19/2002, 02/13/2002Pneumococcal Vaccine: Pediatrics (0 to 5 Years) and At-Risk Patients (6 to 49 Years)Rejpmifww74/07/2003, 04/19/2002, 02/13/2002IPV KhzmupdtGcadjuorz16/24/2006, 06/21/2002, 04/19/2002, Additional history existsMMR MudntztcHoiyctxzl09/24/2006, 12/17/2002Varicella Vaccines Fhsiartum62/11/2007, 12/17/2002Meningococcal ACWY YwqvbepSiqieoasn22/21/2019, 01/05/2013, 01/05/2013RSV Immunization Patients Under 20 monthsAged OutNo longer eligible based on patient's age to complete this topic Procedures Procedure NamePriorityDate/TimeAssociated DiagnosisCommentsCHLAMYDIA TRACHOMATIS AND NEISSERIA GONORRHOEAE MOLECULAR SPGQEAtzjpbo88/05/2025 10:13 AM EST Routine screening for STI (sexually transmitted infection) POC , URINE CAGZCEWLSOJuupwbz45/05/2025 10:11 AM EST test negative VAGINITIS PATHOGENS BY DJZImgamqx54/05/2025 10:07 AM EST Vaginal discharge CULTURE NVWLMTwltils98/05/2025 10:07 AM EST Dysuria TRIIODOTHYRONINE QTAJOwyxbem65/12/2025 3:12 PM EST Pain in joint, multiple sites CBC WITH AUTO SNXZWWEJQGEQMhlvugu83/12/2025 3:12 PM EST Pain in joint, multiple sites COMPREHENSIVE METABOLIC ZKFCLPeubnya56/12/2025 3:12 PM EST Pain in joint, multiple sites THYROXINE AIMPTxpwgxz88/12/2025 3:12 PM EST Pain in joint, multiple sites THYROID STIMULATING QMSTIASFkvraho76/12/2025 3:12 PM EST Pain in joint, multiple sites CBC AND GZFJOKKCXCUJDiudtgm53/12/2025 3:12 PM EST Pain in joint, multiple sites SEDIMENTATION IXJVNpemoya93/12/2025 3:12 PM EST Pain in joint, multiple sites MANISH IFA WITH TITER AND HLEFOXJPzhwcdu74/12/2025 3:12 PM EST Pain in joint, multiple sites THYROXINE LCOGSgpqnfa11/29/2025 4:57 PM EDT Chronic nausea Chronic constipation Altered bowel habits THYROID STIMULATING HORMONE WITH REFLEX TO FREE T4 AND FREE Y0Amtvrxu15/29/2025 4:57 PM EDT Chronic nausea Chronic constipation Altered bowel habits COMPREHENSIVE METABOLIC FRCFEEmbgrur56/29/2025 4:57 PM EDT Chronic nausea Chronic constipation Altered bowel habits COMPLETE BLOOD XYVAXDfenyqz99/29/2025 4:57 PM EDT Chronic nausea Chronic constipation Altered bowel habits XR ABDOMEN 1 PVWTJayxszs20/29/2025 4:49 PM EDT Nausea Other constipation Change in bowel habit PAP FDTWOFmfuauf94/05/2023 12:00 AM ESTfrom Last 3 Months or Most Recently Relevant to Health Maintenance Results * Chlamydia trachomatis and neisseria gonorrhoeae molecular study (05/17/2025 10:13 AM EST)ComponentValueRef RangeTest MethodAnalysis TimePerformed At Pathologist SignatureN. gonorrhoeae, RNA YywzlNlxzzuiwXlycvvey73/08/2025 2:18 PM [facility] ([facility])Chlamydia, RNA Probe SktolywjDxbasnci53/08/2025 2:18 PM [facility] ([facility])Specimen (Source)Anatomical Location / LateralityCollection Method / VolumeCollection TimeReceived TimeSwabVaginal structure / UnknownNon- blood Collection / Fuyudda8905/17/2025 10:13 AM EST05/17/2025 10:13 AM EST Narrative Authorizing ProviderResult TypeResult StatusCa Hidalgo [facility] MICROBIOLOGY - GENERAL ORDERABLESFinal ResultPerforming OrganizationAddress City/State/ZIP CodePhone Number [facility] ([facility]) [address] [place] [phone] * POC , urine manually resulted (05/17/2025 10:11 AM EST)ComponentValue Ref RangeTest MethodAnalysis TimePerformed AtPathologist SignatureHCG, Ur POC NegativeNegativePOC hCG Int QC Pass?YesYesSpecimen (Source)Anatomical Location / LateralityCollection Method / VolumeCollection TimeReceived TimeUrineUrine specimen obtained by clean catch procedure / Qslbqwh8105/17/2025 10:11 AM EST Narrative Authorizing ProviderResult TypeResult Eliza Hidalgo NPPOINT OF CARE TEST ENTER/EDIT ORDERABLESFinal Result * (ABNORMAL) Vaginitis pathogens molecular study (05/17/2025 10:07 AM EST) ComponentValueRef RangeTest MethodAnalysis TimePerformed AtPathologist SignatureBacterial VaginosisPositive(A)Negative METHOD GENEXPERT DX SYSTEM_CEPHEID_MNI 05/18/2025 12:20 AM [facility] ([facility]) Joana GroupNot DetectedNot Detected METHOD GENEXPERT DX SYSTEM_CEPHEID_MNI 05/18/2025 12:20 AM [facility] ([facility]) Joana glabrata/kruseiNot DetectedNot Detected METHOD GENEXPERT DX SYSTEM_CEPHEID_MNI 05/18/2025 12:20 AM [facility] ([facility]) Trichomonas vaginalisNot DetectedNot Detected METHOD GENEXPERT DX SYSTEM_CEPHEID_MNI 05/18/2025 12:20 AM [facility] ([facility]) Specimen (Source)Anatomical Location / LateralityCollection Method / Volume Collection TimeReceived TimeSwabVaginal structure / UnknownNon-blood Collection / Wthkxkz6105/17/2025 10:07 AM EST05/17/2025 10:07 AM EST Narrative [facility] ([facility]) - 05/18/2025 12:20 AM EST The Xpert Xpress MVP test performance has been evaluated in patients 18 years of age and older (including women) Testing of vaginal swab specimens with the Xpert Xpress MVP test is not intended to replace an examby a clinician. Vaginal infections may result from other causes or concurrent infections may occur.The Xpert Xpress MVP test targets three anaerobic microorganisms that are associated with bacterialvaginosis (BV). Other organisms that are not detected by the Xpert Xpress MVP test have also been reported to be associated with BV. A Joana group positive result can be due to one or multiple Joana species. ??Joana species can be present as commensal organisms in women; the Xpert Xpress MVP positive results for Joana should be considered in conjunction with other clinical and patient information to determine the diseasestatus. The BV organism targets of the Xpert Xpress MVP test can be commensal in women. Pentatrichomonas hominis (a commensal of the large intestine) was found to cross-react with the Xpert Xpress MVP test at levels above 5??104 cells/mL. Trichomonas tenax (a commensal of the oral cavity) was foundto cross-react with the Xpert Xpress MVP test at levels above 10 cells/mL. ??Xpert Xpress MVP positi ve results for bacterial vaginosis should be considered in conjunction with other clinical and patient information to determine the disease status. Erroneous test results might occur from improper specimen collection, antibiotic therapy, or because the number of organisms is below the limit of detection of the test. Because the detection of organisms is dependent on the DNA present in the sample, reliable results are dependent on proper samplecollection, handling and storage. The effects of other potential variables such as vaginal discharge, use of tampons, douching, and specimen collection variables have not been determined. The presence of mucin may interfere with the test. Authorizing ProviderResult TypeResult StatusCa Hidalgo [facility] MICROBIOLOGY - GENERAL ORDERABLESFinal ResultPerforming OrganizationAddress [facility]/State/ZIP CodePhone Number [facility] ([facility]) [address] [place] [address] * Culture urine (05/17/2025 10:07 AM EST)ComponentValueRef RangeTest Method Analysis TimePerformed AtPathologist SignatureCulture, UrineNo growth 05/18/2025 7:39 PM [facility] ([facility]) Specimen (Source)Anatomical Location / LateralityCollection Method / Volume Collection TimeReceived TimeUrineUrine specimen obtained by clean catch procedure / UnknownNon-blood Collection / Axnigkm6705/17/2025 10:07 AM EST 05/17/2025 10:07 AM EST Narrative Authorizing ProviderResult TypeResult StatusCa Hidalgo [facility] MICROBIOLOGY - GENERAL ORDERABLESFinal ResultPerforming OrganizationAddress [facility]/State/ZIP CodePhone Number [facility] ([facility]) [address] [place] [address] * MANISH IFA with titer and pattern (04/24/2025 3:12 PM EST)ComponentValueRef Range Test MethodAnalysis TimePerformed AtPathologist SignatureAntinuclear Antibody SdpdunhxZdopyvmg95/13/2025 11:41 AM ESTWARDE LABComment:MANISH performed by indirect immunofluorescence (IFA) using HEp-2 substrate.MANISH TiterTNP<1:80 Titer04/25/2025 11:41 AM ESTWARDE LABANA XiouptjZOF03/13/2025 11:41 AM EST WARDE LABComment: Test performed at [facility], [address] , [place], [place] [address] ? [phone] Ellen Slaughter MD, PhD - Foreclosure Field Inspector Specimen (Source)Anatomical Location / LateralityCollection Method / Volume Collection TimeReceived TimeBloodVenous blood specimen / UnknownVenipuncture / Ifajsml4004/24/2025 3:12 PM EST04/24/2025 3:14 PM EST Narrative Authorizing ProviderResult TypeResult StatusSamih Ajjonah DOL[facility] BLOOD ORDERABLES Final ResultPerforming OrganizationAddressCity/State/ZIP CodePhone Number [place] [address] * (ABNORMAL) CBC auto differential (04/24/2025 3:12 PM EST)ComponentValueRef RangeTest MethodAnalysis TimePerformed AtPathologist SignatureWBC8.34.0 - 10.0 K/mcL LAB HEMETOLOGY METHOD 04/24/2025 3:22 PM [facility]RBC4.294.20 - 5.40 M/mcL LAB HEMETOLOGY METHOD 04/24/2025 3:22 PM [facility] ([facility])Efjtuqedjx74.9 12.0 - 16.0 g/dL LAB HEMETOLOGY METHOD 04/24/2025 3:22 PM [facility] ([facility])Dkkmqlfiun98.5 36.0 - 48.0 % LAB HEMETOLOGY METHOD 04/24/2025 3:22 PM [facility] ([facility])MCV89.782.0 - 102.0 FL LAB HEMETOLOGY METHOD 04/24/2025 3:22 PM [facility] ([facility])MCHC33.530.0 - 36.0 g/dL LAB HEMETOLOGY METHOD 04/24/2025 3:22 PM [facility] ([facility])RDW12.611.0 - 14.0 % LAB HEMETOLOGY METHOD 04/24/2025 3:22 PM [facility] ([facility])Wxdkjrnvy497 140 - 450 K/mcL LAB HEMETOLOGY METHOD 04/24/2025 3:22 PM [facility] ([facility])Neutrophils Glgybdyv73.9(H)43.0 - 76.0 % LAB HEMETOLOGY METHOD 04/24/2025 3:22 PM [facility] ([facility])Immature Granulocytes Relative0.50.0 - 5.0 % LAB HEMETOLOGY METHOD 04/24/2025 3:22 PM [facility]Lymphocytes Hwoohzqs79.8(L)20.0 - 50.0 % LAB HEMETOLOGY METHOD 04/24/2025 3:22 PM [facility])Monocytes Relative5.50.0 - 8.0 % LAB HEMETOLOGY METHOD 04/24/2025 3:22 PM [facility] ([facility])Eosinophils Relative0.10.0 - 5.0 % LAB HEMETOLOGY METHOD 04/24/2025 3:22 PM [facility] ([facility])Basophils Relative0.20.0 - 2.0 % LAB HEMETOLOGY METHOD 04/24/2025 3:22 PM [facility] ([facility])Neutrophils Absolute6.631.70 - 7.60 K/mcL LAB HEMETOLOGY METHOD 04/24/2025 3:22 PM [facility] ([facility])Immature Granulocytes Absolute0.040.00 - 0.10 K/mcL LAB HEMETOLOGY METHOD 04/24/2025 3:22 PM [facility] ([facility])Lymphocytes Absolute1.150.80 - 5.00 K/mcL LAB HEMETOLOGY METHOD 04/24/2025 3:22 PM [facility] ([facility])Monocytes Absolute0.460.00 - 0.80 K/mcL LAB HEMETOLOGY METHOD 04/24/2025 3:22 PM [facility] ([facility])Eosinophils Absolute0.010.00 - 0.70 K/mcL LAB HEMETOLOGY METHOD 04/24/2025 3:22 PM [facility] ([facility])Basophils Absolute0.020.00 - 0.20 K/mcL LAB HEMETOLOGY METHOD 04/24/2025 3:22 PM [facility] ([facility])NRBC0.0<=0.2 % LAB HEMETOLOGY METHOD 04/24/2025 3:22 PM [facility] ([facility])NRBC Absolute 0.00<0.01 K/mcL LAB HEMETOLOGY METHOD 04/24/2025 3:22 PM [facility]Specimen (Source)Anatomical Location / LateralityCollection Method / VolumeCollection TimeReceived TimeBloodVenous blood specimen / UnknownVenipuncture / Unknown 04/24/2025 3:12 PM EST04/24/2025 3:14 PM EST Narrative Authorizing ProviderResult TypeResult StatusSamih Ajami DOL[facility] BLOOD ORDERABLES Final ResultPerforming OrganizationAddressCity/State/ZIP CodePhone Number [facility] [address] [place] [address], * Sedimentation rate (04/24/2025 3:12 PM EST)ComponentValueRef RangeTest Method Analysis TimePerformed AtPathologist SignatureSed Rate20 - 20 mm/hr LAB HEMETOLOGY METHOD 04/24/2025 3:30 PM [facility] ([facility])Specimen (Source)Anatomical Location / LateralityCollection Method / VolumeCollection TimeReceived TimeBloodVenous blood specimen / UnknownVenipuncture / Unknown 04/24/2025 3:12 PM EST04/24/2025 3:14 PM EST Narrative Authorizing ProviderResult TypeResult StatusSami Ajami DOLAB BLOOD ORDERABLES Final ResultPerforming OrganizationAddressCity/State/ZIP CodePhone Number [facility] [address] [place] [address], * Triiodothyronine free (04/24/2025 3:12 PM EST)ComponentValueRef RangeTest MethodAnalysis TimePerformed AtPathologist SignatureT3 (Triiodothyronine) Free 2.92.3 - 4.2 pg/mL04/26/2025 10:07 AM ESTWARDE LABComment: Test performed at [facility], [address] , [place], [place] [address] ? [phone] Ellen Slaughter MD, PhD - Foreclosure Field Inspector Specimen (Source)Anatomical Location / LateralityCollection Method / Volume Collection TimeReceived TimeBloodVenous blood specimen / UnknownVenipuncture / Zxdaqia5804/24/2025 3:12 PM EST04/25/2025 2:03 AM EST Narrative Authorizing ProviderResult TypeResult StatusSamih Ajami DOLAB BLOOD ORDERABLES Final ResultPerforming OrganizationAddressCity/State/ZIP CodePhone Number [facility] [address] [place] [address] * Thyroid stimulating hormone (04/24/2025 3:12 PM EST)ComponentValueRef Range Test MethodAnalysis TimePerformed AtPathologist SignatureTSH1.760.45 - 5.33 mcIU/mL04/24/2025 4:28 PM [facility]BR[facility] ([facility]) Specimen (Source)Anatomical Location / LateralityCollection Method / Volume Collection TimeReceived TimeBloodVenous blood specimen / UnknownVenipuncture / Eiejykb3304/24/2025 3:12 PM EST04/24/2025 3:14 PM EST Narrative [facility] ([facility]) - 04/24/2025 4:28 PM EST Females Tri 1: 0.05 - 3.70 mcIU/mL Tri 2: 0.31 - 4.35 mcIU/mL Tri 3: 0.41 - 5.18 mcIU/mL Authorizing ProviderResult TypeResult StatusSamih Ajami DOLAB BLOOD ORDERABLES Final ResultPerforming OrganizationAddressCity/State/ZIP CodePhone Number [facility] ([facility]) [address] * Thyroxine free (04/24/2025 3:12 PM EST) Only the most recent of2 resultswithin the time period is included. ComponentValueRef RangeTest MethodAnalysis TimePerformed AtPathologist Signature Free T41.200.61 - 1.24 ng/dL04/24/2025 4:29 PM ESTBR[facility] ([facility])Specimen (Source)Anatomical Location / LateralityCollection Method / VolumeCollection TimeReceived TimeBloodVenous blood specimen / Unknown Venipuncture / Mgnvosm7304/24/2025 3:12 PM EST04/24/2025 3:14 PM EST Narrative [facility] ([facility]) - 04/24/2025 4:29 PM EST Potential of falsely elevated results exists following intake of Biotin (Vitamin B7) supplements. Authorizing ProviderResult TypeResult StatusSamih Alvino PETIT BLOOD ORDERABLES Final ResultPerforming OrganizationAddressCity/State/ZIP CodePhone Number [facility] ([facility] [address] [place] [address], * Comprehensive metabolic panel (04/24/2025 3:12 PM EST) Only the most recent of2 resultswithin the time period is included. ComponentValueRef RangeTest MethodAnalysis TimePerformed AtPathologist Signature Sshqvg485226 - 144 mmol/L106/24/2024 4:11 PM ESTBR[facility] ([facility])Potassium3.73.5 - 5.3 mmol/L106/24/2024 4:11 PM [facility] ([facility])Aqhxdkyp91861 - 107 mmol/L106/24/2024 4:11 PM EST [facility] ([facility])HZ43980 - 31 mmol/L106/24/2024 4:11 PM [facility] ([facility])Anion Gap93 - 1111/05/2025 4:11 PM [facility] ([facility])Ezdleya5401 - 99 mg/dL 04/24/2025 4:11 PM [facility] ([facility])BUN77 - 25 mg/dL04/24/2025 4:11 PM [facility] ([facility]) Creatinine0.630.60 - 1.20 mg/dL04/24/2025 4:11 PM [facility] ([facility])yJLI428>=60 mL/min/1.10f93704/24/2025 4:11 PM [facility] ([facility])Comment:Calculation based on the Chronic Kidney Disease Epidemiology Collaboration (CKD-EPI) equation refitwithout adjustment for race.BUN/Creatinine Ratio11 4:11 PM [facility] ([facility])Calcium9.48.6 - 10.3 mg/dL04/24/2025 4:11 PM EST [facility] ([facility])AST (SGOT)1413 - 39 unit/L106/24/2024 4:11 PM [facility]BR[facility])ALT (SGPT)107 - 52 unit/L 04/24/2025 4:11 PM [facility])Alkaline Apepapltncz6459 - 120 unit/L106/24/2024 4:11 PM ESTBR[facility])Total Protein6.96.1 - 7.9 g/dL04/24/2025 4:11 PM [facility]BR[facility])Albumin4.73.5 - 5.7 g/dL04/24/2025 4:11 PM [facility])Total Bilirubin0.40.3 - 1.2 mg/dL 04/24/2025 4:11 PM [facility] ([facility])Specimen (Source)Anatomical Location / LateralityCollection Method / VolumeCollection TimeReceived TimeBloodVenous blood specimen / UnknownVenipuncture / Unknown 04/24/2025 3:12 PM EST04/24/2025 3:14 PM EST Narrative Authorizing ProviderResult TypeResult StatusSamih [facility] DOL BLOOD ORDERABLES Final ResultPerforming OrganizationAddressCity/State/ZIP CodePhone Number [facility] ([facility] [address] [place] [address], * Thyroid stimulating hormone with reflex to free t4 and free t3 (03/11/2025 4:57 PM EDT)ComponentValueRef RangeTest MethodAnalysis TimePerformed At Pathologist SignatureTSH1.570.45 - 5.33 mcIU/mL03/11/2025 6:42 PM [facility]TTSELECT [facility] ([facility])Specimen (Source)Anatomical Location / LateralityCollection Method / VolumeCollection TimeReceived Time BloodVenous blood specimen / UnknownVenipuncture / Lwgttwv2503/11/2025 4:57 PM EDT03/11/2025 4:58 PM EDT Narrative [facility] ([facility]) - 03/11/2025 6:42 PM EDT Females Tri 1: 0.05 - 3.70 mcIU/mL Tri 2: 0.31 - 4.35 mcIU/mL Tri 3: 0.41 - 5.18 mcIU/mL Authorizing ProviderResult TypeResult StatusDena Ezio PALAB BLOOD ORDERABLES Final ResultPerforming OrganizationAddressCity/State/ZIP CodePhone Number [facility] ([facility]) [address] [phone], * Complete blood count (03/11/2025 4:57 PM EDT)ComponentValueRef RangeTest MethodAnalysis TimePerformed AtPathologist SignatureWBC5.84.0 - 10.0 K/mcL 03/11/2025 5:06 PM [facility] ([facility])RBC 4.414.20 - 5.40 M/mcL03/11/2025 5:06 PM [facility] ([facility])Yfdxqqjypg68.212.0 - 16.0 g/dL03/11/2025 5:06 PM [facility] ([facility])Pxxggbrjzd65.936.0 - 48.0 % 03/11/2025 5:06 PM [facility] ([facility])MCV 90.582.0 - 102.0 FL03/11/2025 5:06 PM [facility] ([facility])MCHC33.130.0 - 36.0 g/dL03/11/2025 5:06 PM [facility] ([facility])RDW12.111.0 - 14.0 %03/11/2025 5:06 PM [facility] ([facility])Yfszypdzv917869 - 450 K/[facility]03/11/2025 5:06 PM [facility] ([facility])NRBC0.00.0 - 0.2 %03/11/2025 5:06 PM [facility] ([facility])NRBC Absolute0.00<0.01 K/mcL03/11/2025 5:06 PM EDT [facility] ([facility])Specimen (Source) Anatomical Location / LateralityCollection Method / VolumeCollection Time Received TimeBloodVenous blood specimen / UnknownVenipuncture / Unknown 03/11/2025 4:57 PM EDT03/11/2025 4:58 PM EDT Narrative Authorizing ProviderResult TypeResult StatusDenbinu NIETO BLOOD ORDERABLES Final ResultPerforming OrganizationAddressCity/State/ZIP CodePhone Number [facility] ([facility]) [address] [place] [address], * XR Abdomen 1 View (03/11/2025 4:49 PM EDT)Anatomical RegionLateralityModality BodyRadiographic ImagingSpecimen (Source)Anatomical Location / Laterality Collection Method / VolumeCollection TimeReceived Time03/12/2025 4:05 PM EDT Impressions 03/12/2025 4:06 PM EDT 1. ??2 images, one view supine abdomen. Gas filled loops of bowel in a nonspecific bowel gas pattern. Mild fecal material scattered throughout colon. Clips in the right upper quadrant compatible prior cholecystectomy. Tiny calcification the right pelvis which probably represents a phlebolith although the possibility of a distal ureteral stone cannot entirely be excluded. Electronically reviewed and signed by: Adan Goldstein ??03/12/2025 4:06 PM -------- FINAL REPORT -------- Dictated By: Adan Goldstein Dictated Date: 03/12/2025 16:05 Assigned Physician: Adan Goldstein Reviewed and Electronically Signed By: Adan Goldstein Signed Date: 03/12/2025 16:06 Workstation ID: [id number] Transcribed By: Self Edit Transcribed Date: 03/12/2025 16:05 Patients: If you have questions regarding your report please contact your physician. Physicians: If your patient was seen at a [facility] ([facility]) ??or [facility] and you have questions 03/01 regarding this report, please call: [phone]. Narrative 03/12/2025 4:06 PM EDT XR ABDOMEN 1 VIEW COMPLETED DATE: ??03/11/2025 4:43 PM REASON FOR EXAM: ??Evaluate for stool burden, fecal loading. ADDITIONAL HISTORY PROVIDED BY CLINICAL TEAM: ??None Provided ADDITIONAL HISTORY REVIEWED: ??Abdomen pain, vomiting, constipation. Cholecystectomy x appprox 2 years ago. VIEWS: 1 IMAGES: 2 COMPARISON: ??None Procedure Note Adan Goldstein MD - 03/12/2025 XR ABDOMEN 1 VIEW COMPLETED DATE: 03/11/2025 4:43 PM REASON FOR EXAM: Evaluate for stool burden, fecal loading. ADDITIONAL HISTORY PROVIDED BY CLINICAL TEAM: None Provided ADDITIONAL HISTORY REVIEWED: Abdomen pain, vomiting, constipation. Cholecystectomy x appprox 2 years ago. VIEWS: 1 IMAGES: 2 COMPARISON: None IMPRESSION: 1. 2 images, one view supine abdomen. Gas filled loops of bowel in anonspecific bowel gas pattern. Mild fecal material scattered throughoutcolon. Clips in the right upper quadrant compatible prior cholecystectomy.Tiny calcification the right pelvis which probably represents a phlebolithalthough the possibility of a distal ureteral stone cannot entirely beexcluded. Electronically reviewed and signed by: Adan Goldstein 03/12/2025 4:06PM -------- FINAL REPORT -------- Dictated By: Adan Goldstein Dictated Date: 03/12/2025 16:05 Assigned Physician: Adan Goldstein Reviewed and Electronically Signed By: Adan Goldstein Signed Date: 03/12/2025 16:06 Workstation ID: [id number] Transcribed By: Self Edit Transcribed Date: 03/12/2025 16:05 Patients: If you have questions regarding your report please contact your physician. Physicians: If your patient was seen at a [facility] ([facility]) or [facility] and you havequestions 03/01 regarding this report, please call: [phone]. Authorizing ProviderResult TypeResult StatusDena [facility] XR PROCEDURESFinal Result * Pap smear (05/17/2023 12:00 AM EST)Specimen (Source)Anatomical Location / LateralityCollection Method / VolumeCollection TimeReceived Time Brushing/SpatulaCervix uteri structure / Unknown Narrative Authorizing ProviderResult TypeResult StatusHistorical Provider [facility]O CYTOLOGY ORDERABLESFinal ResultPerforming OrganizationAddressCity/State/ZIP CodePhone Number [address] [place] [address], from Last 3 Months or Most Recently Relevant to Health Maintenance Insurance Care Teams Team MemberRelationshipSpecialtyStart DateEnd Date Wilfredo De Oliveira DO [address] [facility] [address] [place] [address] PCP - GeneralFamily Medicine10/25/22
--- OUTSIDE RECORDS SUMMARY | 2025-06-08 11:49 | XMS_ITS | Clinical Summary ---
Author Organization [facility] tem Address [id number] [address] [place] [address] Care Team Providers Care Thread Dresser Name Role Phone Wilfredo De Oliveira DO Primary Care Provider Unavailabl e Allergies Active AllergyReactionsCriticalityNoted DateCommentsSulfa (Sulfonamide Antibiotics)04/11/2022 Medications MedicationSigDispense QuantityRefillsLast FilledStart DateEnd DateStatus ondansetron ODT (ZOFRAN ODT) 4 mg disintegrating tablet Dissolve 1 tablet (4 mg total) on tongue every 8 (eight) hours as needed for nausea or vomiting forup to 12 doses. 12 tablet 10/03/2022ctive Social History Tobacco UseTypesPacks/DayYears UsedDateSmoking Tobacco: Never Assessed CommentsNoSex and Gender InformationValueDate RecordedSex Assigned at BirthNot on fileLegal IvwXrfykr88/29/2022 11:37 PM EDTGender IdentityNot on fileSexual OrientationNot on file Last Filed Vital Signs Vital SignReadingTime TakenCommentsBlood Ypjkoovq647/8204 11:47 PM EDT Wnrci2594 11:47 PM BNACgjslzgonwj25.7 ??C (98 ??F)10/03/2022 11:47 PM EDTRespiratory Ikzp4618 11:47 PM EDTOxygen Gxxitotnrg90%10/03/2022 11:47 PM EDTInhaled Oxygen Concentration--Oprmse58 kg (130 lb)10/03/2022 9:49 PM EDT Ckbrek351.5 cm (5' 2 )10/03/2022 9:49 PM EDTBody Mass Index23.78010/03/2022 9:49 PM EDT Plan of Treatment Not on file Medical Devices Not on file Insurance * Guarantor: Yaz DavisAccount TypeRelation to PatientDate of PhoneBilling AddressPersonal/GrwxabSeym64/29/2001 [address] [address] Care Teams Team MemberRelationshipSpecialtyStart DateEnd Date Wilfredo De Oliveira DO PCP - GeneralFamily Medicine10/03/22
--- OUTSIDE RECORDS SUMMARY | 2025-06-08 11:49 | XMS_ITS | Clinical Summary ---
Author Organization [facility] Address [address] [place], [place] [id number] Care Team Providers Care Destaticizer Feeder Name Role Phone Lloyd Shanks MD Unavailable Medications MedicationSigDispense QuantityRefillsLast FilledStart DateEnd DateStatus levothyroxine (TIROSINT-MARTA) 150 mcg/mL soln Take 2 mL by mouth daily before breakfast. 60 mL ctive Active Problems ProblemNoted DateDiagnosed MwooVficdtgoxcyvgu53/28/2023raves iylnjee6710/08/2022 Malaise and zpwihsf0610/08/2022 Family History Medical HistoryRelationCommentsGraves DiseaseMaternal GrandmotherHashimoto DiseaseMotherRelationStatusCommentsMaternal GrandmotherMother Social History Tobacco UseTypesPacks/DayYears UsedDateSmoking Tobacco: NeverSmokeless Tobacco: Never Tobacco Cessation:Counseling Given: Not Answered Area Deprivation IndexAnswerDate RecordedNational Score (1-100), lower number is lower umev979501/13/2023State Score (1-10), lower number is lower vvxb863 Data from: https://www.neighborhoodatlas.medicine[facility].edu/. Last address used for coars[address]/13/2023CommentsUnknownSex and Gender InformationValueDate RecordedSex Assigned at BirthNot on fileLegal SexFemale 06/23/2022 1:41 PM ESTGender IdentityNot on fileSexual OrientationNot on file Plan of Treatment Health MaintenanceDue DateLast DoneCommentsPeds To Adult Transition Initial Qrnlkckxzd53/29/2014Peds To Adult Transition Annual Xisxqqvics81/29/2016HPV Vaccine (1 - 3-dose series)2016Meningococcal B Vaccine (1 of 2 - Standard) 2017Annual PCP Team Chronic Disease Visit12/10/2019Anxiety Screening 12/10/2019Chlamydia Screening (18-24)12/10/2019Depression Pepabbgmg63/29/2020GC (Gonorrhea) Screening (18-24)12/10/2019HIV Siyykiolw95/29/2020Hepatitis C Igixrvarg04/29/2020DTaP,Tdap,Td Vaccine (7 - Td or Tdap), 02/03/2006, 02/14/2003, Additional history existsCovid-19 Vaccine ( - 2024- season)/, 09/24/2020Influenza Vaccine (#1)2025 04/30/2022, 05/06/2021, 03/04/2020, Additional history existsCervical Cancer Mfcmlaolm60, 05/04/2022Hepatitis B AjexzuwTcccaowqg32/09/2003, 02/13/2002, 2001 Insurance * Guarantor: Jeffrey Davis TypeRelation to PatientDate of BirthPhone Billing AddressPersonal/HxmittWwaj98/29/2001 [address] [address] * Guarantor: CORPORATE ANAM VALDEZ LLCAccount TypeRelation to PatientDate of BirthPhoneBilling AddressCorporateOther [address] [place] [address] Care Teams Team MemberRelationshipSpecialtyStart DateEnd Date Lloyd Shanks MD [address] [place] [address] ConsultingEndocrinolog07/05/22
[2025-06-08 11:59] LABS: Hematocrit 42.1 % (36.0-48.0); Hemoglobin 14.5 g/dL (12.0-16.0); Immature Granulocytes Abs Auto 0.07 10^3/uL (0.00-0.03); Immature Granulocytes Pct Auto 0.4 % (0.0-0.5); Lymphocytes Absolute Auto 0.8 10^3/uL (1.2-3.8); Mean Corpuscular HGB Conc 34.4 g/dL (29.9-35.2); Mean Corpuscular Hemoglobin 30.8 pg (26.7-34.0); Mean Corpuscular Volume 89.4 fL (81.0-99.0); Platelet Count 240 10^3/uL (150-450); Red Blood Count 4.71 10^6/uL (4.20-5.40); White Blood Count 16.2 10^3/uL (4.0-11.0)
[2025-06-08] MEDS: FAMOTIDINE/PF 20 MG/2 ML VIAL 40 MG IV (12:07)
[2025-06-08 12:15] LABS: Alanine Aminotransferase 14 U/L (14-59); Albumin Globulin Ratio 1.5; Albumin Level 4.7 g/dL (3.4-5.0); Alkaline Phosphatase 47 U/L (46-116); Anion Gap 12.4; Aspartate Amino Transferase 17 U/L (15-37); Blood Urea Nitrogen 12.0 mg/dL (7.0-18.0); Calcium 9.8 mg/dL (8.5-10.1); Carbon Dioxide 26.9 mmol/L (21.0-32.0); Chloride 103 mmol/L (98-107); Estimated GFR (African America >60 (>=60 mL/min/1.73m^2); Estimated GFR (Non-African Ame >60 (>=60 mL/min/1.73m^2); Globulin 3.2 g/dL; Glucose 103 mg/dL (74-106); Lipase 20.0 U/L (16.0-77.0); Potassium 3.3 mmol/L (3.5-5.1); Sodium 139 mmol/L (136-145); Total Protein 7.9 g/dL (6.4-8.2)
--- NOTE | 2025-06-08 16:48 | ED.GENADUL1 ---
HPI HPI - General Adult General Chief complaint: Abdominal Pain Stated complaint: ABDOMINAL PAIN, NAUSEA, VOMITING, Time Seen by Provider: 06/08/25 11:04 Source: patient and family Mode of arrival: walk-in Limitations: no limitations History of Present Illness HPI narrative: Patient is a healthy 24-year-old female presenting to the emergency department for evaluation of epigastric pain, and nausea. Patient states she has a history of chronic abdominal pain and nausea. She states she has had multiple CAT scans in the past. She has seen 4 different GI specialist for the same concern. She had a colonoscopy and endoscopy within the last 2 years as well. She states that no one has been able to figure out exactly wrong with her. She states that the only medications that help include metoclopramide and marijuana. Other than epigastric pain and nausea that began earlier today, she has no other new symptoms. No vomiting. No chest pain or shortness of breath. No fevers or chills. No constipation or diarrhea. Denies being as she is currently on her menstrual cycle. Related Data Home Medications ?Medication ?Instructions ?Recorded ?Confirmed hydroxyzine HCl 10 mg tablet 10 mg PO TID PRN anxiety 06/08/25 06/08/25 levothyroxine 125 mcg tablet 125 mcg PO DAILY 06/08/25 06/08/25 (Euthyrox) Previous Rx's ?Medication ?Instructions ?Recorded metoclopramide HCl 10 mg tablet 10 mg PO Q6H 7 days #28 tabs 06/08/25 Allergies Allergy/AdvReac Type Severity Reaction Status Date / Time No Known Drug Allergies Allergy Verified 06/08/25 11:11 Review of Systems ROS Status of ROS 10 or more systems reviewed and unremarkable except as noted in history and below PFSH PFSH Social History Little interest or pleasure in doing things: not at all Feeling down, depressed, or hopeless: not at all Exam Narrative Exam Narrative: CONSTITUTIONAL: Sleeping in the stretcher, when awoken is in no acute distress, answering questions and following commands appropriately SKIN: Was warm and dry. EYES: Sclerae white. EARS, NOSE, THROAT: Moist oral mucosa. RESPIRATORY: Clear to auscultation bilaterally, no wheezes, crackles, or stridor, no use of accessory muscles CARDIOVASCULAR: Normal rate and regular rhythm. There is no S3, S4, murmur, rub. GASTROINTESTINAL: Mild tenderness to palpation epigastrium without rebound tenderness or guarding. Negative Hurd sign. No rebound tenderness or guarding. MUSCULOSKELETAL: No peripheral edema. NEUROLOGIC: Patient is awake and alert. Facies were symmetrical. Constitutional Vital Signs, click to edit/add: Last Vital Signs Temp 97.5 F L 06/08/25 11:11 Pulse 69 06/08/25 11:11 Resp 16 06/08/25 11:11 BP 112/74 06/08/25 11:11 Pulse Ox 100 06/08/25 11:11 O2 Del Method Room Air 06/08/25 11:11 Course Vital Signs Vital signs: Vital Signs Temperature 97.5 F L 06/08/25 11:11 Pulse Rate 69 06/08/25 11:11 Respiratory Rate 16 06/08/25 11:11 Blood Pressure 112/74 06/08/25 11:11 Pulse Oximetry 100 06/08/25 11:11 Oxygen Delivery Method Room Air 06/08/25 11:11 Temperature 97.5 F L 06/08/25 11:11 Pulse Rate 69 06/08/25 11:11 Respiratory Rate 16 06/08/25 11:11 Blood Pressure 112/74 06/08/25 11:11 Pulse Oximetry 100 06/08/25 11:11 Oxygen Delivery Method Room Air 06/08/25 11:11 Medical Decision Making MDM Narrative Medical decision making narrative: Patient is a healthy 24-year-old female presenting to the emergency room with acute on chronic abdominal pain and nausea. Her vital signs on arrival are within normal limits. She is afebrile and hemodynamically stable. Overall, the patient appears well and in no acute distress. There is only mild tenderness palpation epigastrium without peritoneal signs. Differential diagnosis includes acute on chronic abdominal pain, gastritis, GERD, pancreatitis, , or other electrolyte/metabolic derangement. Patient's exam is not consistent with surgical etiologies of abdominal pain such as appendicitis, cholecystitis, or perforated viscus. IV was established laboratory studies were obtained. She was given oral GI cocktail, famotidine IV, and Zofran IV for symptomatic treatment. Laboratory studies were unremarkable. No significant electrolyte or metabolic derangement. No evidence of acute kidney injury. No significant anemia, leukocytosis, or thrombocytopenia. No transaminitis or hyperbilirubinemia. test negative. On reevaluation, patient states her symptoms are improving. I do believe the patient is stable for discharge. They were instructed to follow up with her PCP for further care. Return precautions were given including any new or worsening symptoms. They were given a prescription for Reglan. Patient understands and agrees to the plan. FINAL IMPRESSION: #Acute on chronic abdominal pain DISPOSITION: Discharged home CONDITION: Good Lab Data Lab results reviewed: Yes I reviewed the patient's lab results Labs: Lab Results 06/08/25 Range/Units 11:50 WBC 16.2 H (4.0-11.0) 10^3/uL RBC 4.71 (4.20-5.40) 10^6/uL Hgb 14.5 (12.0-16.0) g/dL Hct 42.1 (36.0-48.0) % MCV 89.4 (81.0-99.0) fL MCH 30.8 (26.7-34.0) pg MCHC 34.4 (29.9-35.2) g/dL RDW 11.8 (11.0-15.0) % Plt Count 240 (150-450) 10^3/uL MPV 9.8 (9.5-13.5) fL Neut % (Auto) 89.3 H (43.0-75.0) % Lymph % (Auto) 5.0 L (20.5-60.0) % [place] % (Auto) 5.0 (1.7-12.0) % Eos % (Auto) 0.1 L (0.9-7.0) % Baso % (Auto) 0.2 (0.2-2.0) % Neut # (Auto) 14.5 H (1.4-6.5) 10^3/uL Lymph # (Auto) 0.8 L (1.2-3.8) 10^3/uL [place] # (Auto) 0.8 (0.3-0.8) 10^3/uL Eos # (Auto) 0.0 (0.0-0.7) 10^3/uL Baso # (Auto) 0.0 (0.0-0.1) 10^3/uL Abs Immat Gran (auto) 0.07 H (0.00-0.03) 10^3/uL Imm/Tot Granulo (auto) 0.4 (0.0-0.5) % Sodium 139 (136-145) mmol/L Potassium 3.3 L (3.5-5.1) mmol/L Chloride 103 (98-107) mmol/L Carbon Dioxide 26.9 (21.0-32.0) mmol/L Anion Gap 12.4 BUN 12.0 (7.0-18.0) mg/dL Creatinine 0.79 (0.55-1.02) mg/dL Est GFR ( Amer) >60 (>=60 mL/min/1.73m^2) Est GFR (Non-Af Amer) >60 (>=60 mL/min/1.73m^2) BUN/Creatinine Ratio 15.2 Glucose 103 (74-106) mg/dL Calcium 9.8 (8.5-10.1) mg/dL Total Bilirubin 0.8 (0.2-1.0) mg/dL AST 17 (15-37) U/L ALT 14 (14-59) U/L Alkaline Phosphatase 47 (46-116) U/L Total Protein 7.9 (6.4-8.2) g/dL Albumin 4.7 (3.4-5.0) g/dL Globulin 3.2 g/dL Albumin/Globulin Ratio 1.5 Lipase 20.0 (16.0-77.0) U/L Serum HCG, Qual Negative (NEGATIVE) Discharge Plan Discharge Chief Complaint: Abdominal Pain Clinical Impression: Abdominal pain Patient Disposition: Home, Self-Care Time of Disposition Decision: 12:30 Condition: Good Mode of Transportation: Private Vehicle Prescriptions / Home Meds: New metoclopramide HCl 10 mg tablet 10 mg PO Q6H 7 Days Qty: 28 0RF No Action levothyroxine [Euthyrox] 125 mcg tablet 125 mcg PO DAILY hydroxyzine HCl 10 mg tablet 10 mg PO TID PRN (Reason: anxiety) Print Language: Macedonian Instructions: Chronic Abdominal Pain (DC) Referrals: Physician,Non-Staff, MD [Primary Care Provider] - 1 week Discharge Date/Time: 06/08/25 12:53
== END 2025-06-08 12:53 | disposition home or self-care (01) ==
PROVIDERS: Emergency Provider Student in an Organized Health Care Education/Training Program
DX: R10.13 Epigastric pain (principal); R11.0 Nausea
CPT/HCPCS: 36415; 80053; 83690; 84703; 85025; 96374; 96375; 99284; J2405; J3490